=== PATIENT | female | born 1955 | race Caucasian/White ===

== ENCOUNTER 2019-10-12 23:08 | Inpatient (IN) | payer SELFPAY, OTHER ==
[2019-10-12] MEDS ORDERED: propofoL 1,000 MG/100 ML VIAL IV ONE (23:32)
[2019-10-12 23:37] LABS: Blood Gas Oxyhemoglobin 97.2 % (94-97); Blood O2 Saturation 99.9 % (92-98.5)
[2019-10-12 23:47] LABS: Absolute Lymphocytes (CBC) 1.8 K/uL (0.7-4.9); Basophils % 0.8 % (0-1.3); Hematocrit 44.4 % (36.0-45.0); Lymphocytes % 36.5 % (15.3-44.8); RBC Red Blood Cell Count 4.96 M/uL (3.86-4.86)
[2019-10-12 23:52] LABS: Protime INR 0.95
[2019-10-13] MEDS ORDERED: VANCOMYCIN 1 GM/VIAL ONE (00:03)
[2019-10-13] MEDS ORDERED: NA CHLORIDE 0.9% 250 ML ONE (00:03)
[2019-10-13 00:06] LABS: ALT/SGPT 22 U/L (12-78); AST/SGOT 26 U/L (15-37); Albumin 3.6 g/dL (3.4-5.0); Alkaline Phosphatase 97 U/L (45-117); BUN Blood Urea Nitrogen 10 mg/dL (7-18); Bicarbonate 32 mmol/L (21-32); Bilirubin Direct < 0.1 mg/dL (0-0.2); Bilirubin Total 0.2 mg/dL (0.2-1.0); Glucose Level 104 mg/dL (74-106); Protein, Total 7.5 g/dL (6.4-8.2); Sodium Level 141 mmol/L (136-145)
[2019-10-13 00:07] LABS: CKMB Creatine Kinase MB 1.8 ng/mL (0.3-3.6); Troponin (Emerg Dept Use Only) 0.12 ng/mL (0.0-0.045)
[2019-10-13 00:10] LABS: Urine Blood 2+ (NEG); Urine Glucose NEGATIVE (NEG); Urine Protein 3+ (NEG); Urine Specific Gravity 1.025 (1.005-1.030)
[2019-10-13 00:42] LABS: Urine Bacteria >50 /HPF (<20)
[2019-10-13 00:43] LABS: Urine Culture Reflex Order NOT NEEDED; Urine Mucus 1+ /HPF (NONE SEEN)
[2019-10-13] MEDS ORDERED: ACETAMINOPHEN 500 MG TAB PO PRN (01:57)
[2019-10-13] MEDS ORDERED: propofoL 1,000 MG/100 ML VIAL IV PRN (01:57)
[2019-10-13] MEDS ORDERED: ONDANSETRON 4 MG/2 ML VIAL IV PRN (01:57)
[2019-10-13] MEDS: ALBUTEROL 2.5 MG/3 ML NEB SOL NEB SCH ×4 (02:00→19:30)
[2019-10-13] MEDS: IPRATROPIUM BROM 0.5MG/2.5ML NEB SCH ×4 (02:00→19:30)
[2019-10-13] MEDS ORDERED: ASPIRIN 600 MG/SUPP PR ONE (02:16)
--- NOTE | 2019-10-13 02:36 | EDPHYS ---
Physician Documentation [facility] Name: Apple Kan Age: 64 yrs Sex: Female : 1955 Arrival Date: 10/12/2019 Time: 23:26 Bed 3 Private MD: ED Physician Ray Barrow HPI: 10/11 23:32 This 64 yrs old Female presents to ER via Unassigned with complaints of cp respiratory distress. 23:32 The patient or guardian reports cough. Onset: The symptoms/episode began/occurred at an cp unknown time. Unable to obtain HPI due to patient intubated by EMS. Historical: - Allergies: 10/12 00:34 PENICILLINS; rr5 - Home Meds: 00:34 Omeprazole Oral [Active]; Lisinopril Oral [Active]; rr5 - PMHx: 00:34 stroke; brain bleed; Hypertension; rr5 - PSHx: 00:34 Appendectomy; rr5 - Immunization history:: Adult Immunizations unknown. - Social history:: Smoking status: Patient reports the use of cigarette tobacco products, smokes one pack cigarettes per day. Patient uses alcohol, on a daily basis. Patient/guardian denies using street drugs, history taken from [id number]. ROS: 10/11 23:33 Constitutional: Negative for fever. cp Respiratory: Positive for cough. Unable to obtain ROS due to patient is on ventilator. Exam: 23:35 Constitutional: The patient appears non-diaphoretic, well developed, well nourished. cp 23:35 Head/Face: Normocephalic, atraumatic. cp 23:35 Eyes: Periorbital structures: appear normal, Pupils: equal, round, and reactive to light and accomodation, Conjunctiva: normal, no exudate, no injection, Sclera: no appreciated abnormality, Lids and lashes: appear normal, bilaterally. 23:35 ENT: External ear(s): are unremarkable, Nose: is normal. 23:35 Chest/axilla: Inspection: normal. 23:35 Cardiovascular: Rate: normal, Rhythm: regular. 23:35 Respiratory: Breath sounds: are clear throughout, no decreased breath sounds, rhonchi, no wheezing. 23:35 Abdomen/GI: Inspection: abdomen appears normal, Bowel sounds: active, all quadrants. 23:35 Neuro: Orientation: unable to test, the patient is intubated, Mentation: unable to test, the patient is intubated. 10/12 00:25 ECG was reviewed by the Attending Physician. cp Vital Signs: 10/11 11:20 BP 158 / 90; Pulse 72; Resp 16 A; Pulse Ox 100% on 15 lpm ETT ambu; sg 23:20 Temp 96.9; rr5 23:30 Weight 65.77 kg; Height 5 ft. 4 in. (162.56 cm); rr5 10/12 00:00 BP 137 / 87; Pulse 96; Resp 16; Temp 97.5; Pulse Ox 100% on ETT vent; rr5 00:30 BP 167 / 94; Pulse 80; Resp 16; Temp 97.7; Pulse Ox 100% on ETT vent; rr5 01:00 BP 173 / 148; Pulse 95; Resp 16; Temp 97.6; Pulse Ox 100% on ETT vent; rr5 02:00 BP 151 / 75; Pulse 74; Resp 16; Temp 96.9; Pulse Ox 100% on 50% FiO2 ETT vent; rr5 03:00 BP 137 / 80; Pulse 79; Resp 19; Temp 96.8; Pulse Ox 100% on 40% FiO2 ETT vent; rr5 03:25 BP 126 / 53; Pulse 75; Resp 16; Temp 97; Pulse Ox 100% on 40% FiO2 ETT vent; rr5 04:00 BP 110 / 90; Pulse 62; Resp 16; Temp 96; Pulse Ox 100% on 40% FiO2 ETT vent; rr5 10/11 23:30 Body Mass Index 24.89 (65.77 kg, 162.56 cm) rr5 [place] Coma Score: 10/11 23:30 Eye Response: none(1). Verbal Response: none(1). Motor Response: none(1). Modifying rr5 Factors: Intubated. Total: 3. 10/12 00:00 Eye Response: none(1). Verbal Response: none(1). Motor Response: none(1). Modifying rr5 Factors: Intubated. Total: 3. 01:00 Eye Response: none(1). Verbal Response: none(1). Motor Response: none(1). Modifying rr5 Factors: Intubated. Total: 3. 02:00 Eye Response: none(1). Verbal Response: none(1). Motor Response: none(1). Modifying rr5 Factors: Intubated. Total: 3. 03:00 Eye Response: none(1). Verbal Response: none(1). Motor Response: none(1). Modifying rr5 Factors: Intubated. Total: 3. 04:00 Eye Response: none(1). Verbal Response: none(1). Motor Response: none(1). Modifying rr5 Factors: Intubated. Total: 3. Ventilator: 02:00 Fi02: 50%; Rate: 16min; Peep: 5cm; ET tube: 24 mm (Oral); rr5 MDM: 10/11 23:34 Patient medically screened. cp 10/12 00:00 Differential diagnosis: bronchitis, flu, URI, sepsis, pneumonia. cp 01:30 Physician consultation: Deepali Amador MD was called at 01:30, was contacted at 01:30, cp regarding admission, to the ICU, patient's condition. 01:35 Data reviewed: vital signs, nurses notes, lab test result(s), EKG, radiologic studies, cp CT scan, plain films, I have discussed the patient's presentation/case with the attending Emergency Department Physician; and as a result, I will admit patient, administer antibiotics vancomycin, cefepime. 10/11 23:29 Order name: ABG; Complete Time: 23:58 10/11 23:59 Interpretation: Normal except: ABGPCO2 47.4; ABGPO2 465.0; ABGHCO3 29.1; ABGSO2 99.9; cp TWDJ1BF 97.2; ABGCOHB 2.0. 10/11 23:29 Order name: Urine Culture 10/11 23:29 Order name: Basic Metabolic Panel 10/11 23:29 Order name: Blood Culture Adult (2) 10/11 23:29 Order name: CBC with Diff 10/11 23:29 Order name: Ckmb cp 10/11 23:29 Order name: Lactate cp 10/11 23:29 Order name: LFT's 10/11 23:29 Order name: Procalcitonin; Complete Time: 00:32 cp 10/12 00:33 Interpretation: Within normal limits: Procalcitonin < 0.05. cp 10/11 23:29 Order name: Protime (+inr); Complete Time: 23:58 cp 10/11 23:29 Order name: Ptt, Activated; Complete Time: 23:58 cp 10/11 23:29 Order name: Troponin (emerg Dept Use Only); Complete Time: 00:32 cp 10/12 00:32 Interpretation: Abnormal: TROPED 0.12. cp 10/11 23:29 Order name: Urine Microscopic Only; Complete Time: 01:28 cp 10/12 01:31 Interpretation: Reviewed. 10/11 23:29 Order name: Urine Culture EDAL 10/11 23:29 Order name: Basic Metabolic Panel; Complete Time: 00:32 EDAL 10/12 00:32 Interpretation: Normal except: GFR 74. cp 10/11 23:29 Order name: Blood Culture [facility] 10/11 23:29 Order name: CBC with Automated Diff; Complete Time: 23:58 [facility] 10/11 23:59 Interpretation: Normal except: RBC 4.96. 10/11 23:29 Order name: CKMB Creatine Kinase MB; Complete Time: 00:32 EDAL 10/11 23:29 Order name: Lactate; Complete Time: 00:32 EDAL 10/12 00:33 Interpretation: Within normal limits: LAC 1.8. 10/11 23:29 Order name: Liver (Hepatic) Function; Complete Time: 00:32 [facility] 10/11 23:38 Order name: COVID-19 [facility] 10/11 23:47 Order name: Influenza Screen (a \T\ B); Complete Time: 00:32 10/12 00:07 Order name: Urine Dipstick--Ancillary (enter results); Complete Time: 00:32 [facility] 10/12 00:32 Interpretation: Normal except: UBLD 2+; UPROT 3+; UESTR TRACE. cp 10/12 02:11 Order name: ABG Arterial Blood Gas EDAL 10/12 02:11 Order name: CBC with Automated Diff EDAL 10/12 02:11 Order name: Comprehensive Metabolic Panel EDAL 10/12 02:11 Order name: Magnesium EDMS 10/12 02:11 Order name: Phosphorus EDMS 10/12 02:11 Order name: Protime (+INR) EDAL 10/12 02:11 Order name: PTT, Activated Partial Thromb EDMS 10/11 23:29 Order name: Chest Single View XRAY 10/11 23:29 Order name: Accucheck; Complete Time: 00:10 10/11 23:29 Order name: Cardiac monitoring; Complete Time: 00:10 10/11 23:29 Order name: EKG - Nurse/Tech; Complete Time: 00:10 10/11 23:29 Order name: IV Saline Lock - Large Bore; Complete Time: 00:10 10/11 23:29 Order name: Labs collected and sent; Complete Time: 00:10 10/11 23:29 Order name: O2 Per Protocol; Complete Time: 00:10 10/11 23:29 Order name: O2 Sat Monitoring; Complete Time: 00:10 10/11 23:29 Order name: Urine Dipstick-Ancillary (obtain specimen); Complete Time: 00:10 10/11 23:29 Order name: CT Head Brain wo Cont 10/12 01:31 Order name: CT Chest For PE Angio 10/12 02:11 Order name: CONS Physician Consult [facility] 10/12 02:11 Order name: NPO [facility] 10/12 02:11 Order name: Lactate [facility] 10/12 02:11 Order name: Lactate [facility] 10/12 02:11 Order name: Lipid Profile [facility] 10/12 02:11 Order name: Lipid Profile [facility] 10/12 02:11 Order name: NT PRO-BNP [facility] 10/12 02:11 Order name: NT PRO-BNP [facility] 10/12 02:11 Order name: NT PRO-BNP [facility] 10/12 02:12 Order name: T4 Free [facility] 10/12 02:12 Order name: T4 Free [facility] 10/12 02:12 Order name: Thyroid Stimulating Hormone [facility] 10/12 02:12 Order name: Thyroid Stimulating Hormone [facility] 10/12 02:12 Order name: Troponin I [facility] 10/12 02:12 Order name: Troponin I [facility] 10/12 02:12 Order name: Troponin I [facility] EC:25 Rate is 85 beats/min. Rhythm is regular. MI interval is normal. QRS interval is normal. cp QT interval is normal. T waves are Inverted in lead aVL. Interpreted by me. Reviewed by me. Administered Medications: 10/11 23:45 Drug: Propofol 5 mcg/kg/min Route: IV; Rate: calculated rate; Site: right antecubital; rr5 10/12 00:00 Follow up: Rate change 10 mcg/kg/min rr5 00:30 Follow up: Rate change 15 mcg/kg/min rr5 01:00 Follow up: Rate change 20 mcg/kg/min rr5 01:30 Follow up: Rate change 25 mcg/kg/min rr5 01:45 Follow up: Rate change 35 mcg/kg/min rr5 02:00 Follow up: Rate change 40 mcg/kg/min rr5 02:30 Follow up: Rate change 50 mcg/kg/min rr5 03:30 Follow up: Rate change 40 mcg/kg/min rr5 10/11 23:54 Drug: Cefepime 1 grams Route: IVPB; Rate: 200 ml/hr; Infused Over: 30 mins; Site: right jb4 hand; 10/12 00:18 Follow up: Response: No adverse reaction; IV Status: Completed infusion; IV Intake: rr5 100ml 00:20 Dru grams of (vancoMYCIN 1 grams, NS 0.9% 250 ml) Route: IVPB; Infused Over: 2 hrs; rr5 Site: right hand; 02:20 Follow up: Response: No adverse reaction; IV Status: Completed infusion; IV Intake: rr5 250ml 02:00 Drug: NS 0.9% 1000 ml Route: IV; Rate: 100 ml/hr; Site: right forearm; rr5 04:25 Follow up: Response: No adverse reaction; IV Status: Infusion continued upon admission; rr5 IV Intake: 200ml 03:00 Drug: Aspirin Suppository 300 mg Route: MI; rr5 04:00 Follow up: Response: No adverse reaction rr5 Disposition: 03:00 Chart complete. cp 19:09 Co-signature as Attending Physician, Ray Barrow MD. pkmoses Disposition: 10/13/19 02:35 Hospitalization ordered by Deepali Amador for Inpatient Admission. Preliminary diagnosis is Respiratory failure, unspecified. - Bed requested for Intensive Care Unit. - Status is Inpatient Admission. sg - Condition is Critical. - Problem is new. - Symptoms have improved. Signatures: Dispatcher [facility] Rekha Solomon RN RN mw Gay, Steven, RN RN sg Lam, Pin, MD MD pkNaun Hogue PA PA cp Bryson, James, RN RN jb4 Manohar Griffiths RN RN rr5 Corrections: (The following items were deleted from the chart) 03:22 02:35 Hospitalization Ordered by Deepali Amador MD for Inpatient Admission. Preliminary mw diagnosis is Respiratory failure, unspecified. Bed requested for Intensive Care Unit. Status is Inpatient Admission. Condition is Critical. Problem is new. Symptoms have improved. cp 04:50 03:22 10/13/2019 02:35 Hospitalization Ordered by Deepali Amador MD for Inpatient sg Admission. Preliminary diagnosis is Respiratory failure, unspecified. Bed requested for Intensive Care Unit. Status is Inpatient Admission. Condition is Critical. Problem is new. Symptoms have improved. mw
--- NOTE | 2019-10-13 02:36 | ER ---
Nurse's Notes [facility] Name: Apple Kan Age: 64 yrs Sex: Female : 1955 Arrival Date: 10/12/2019 Time: 23:26 Bed 3 Private MD: Diagnosis: Respiratory failure, unspecified Presentation: 10/11 11:20 Chief complaint: EMS states: pt had called EMS for shortness of breath, and cough, upon sg EMS arrival pt had a coughing spell and became apneic for several minutes. 11:20 Acuity: ELEAZAR 1 11:20 Coronavirus screen: Surgical mask placed on patient. Patient moved to private room, sg placed in contact and droplet isolation with eye protection until further assessment. Patient reports a cough. Ebola Screen: Unable to complete the Ebola screening because: Patient is intubated. Initial Sepsis Screen: Does the patient meet any 2 criteria? HR > 90 bpm. No. Patient's initial sepsis screen is negative. Does the patient have a suspected source of infection? Yes: Productive cough/pneumonia. Risk Assessment: Do you want to hurt yourself or someone else? Unable to obtain. Onset of symptoms was October 13, 2019. Care prior to arrival: Oral intubation, Medication(s) given: RSI medications IV initiated. 20 GA, in the left wrist, Oxygen administered. via AMBU bag. 11:20 Method Of Arrival: EMS: [facility] sg 11:20 Note ETT is 7.0 measuring 24 at the teeth per [facility]. Transition of care: patient sg was not received from another setting of care. Historical: - Allergies: 10/12 00:34 PENICILLINS; rr5 - Home Meds: 00:34 Omeprazole Oral [Active]; Lisinopril Oral [Active]; rr5 - PMHx: 00:34 stroke; brain bleed; Hypertension; rr5 - PSHx: 00:34 Appendectomy; rr5 - Immunization history:: Adult Immunizations unknown. - Social history:: Smoking status: Patient reports the use of cigarette tobacco products, smokes one pack cigarettes per day. Patient uses alcohol, on a daily basis. Patient/guardian denies using street drugs, history taken from [id number]. Screenin/25 23:35 Abuse screen: Denies threats or abuse. Denies injuries from another. Nutritional rr5 screening: No deficits noted. Tuberculosis screening: No symptoms or risk factors identified. Fall Risk Ambulatory Aid- None/Bed Rest/Nurse Assist (0 pts). Gait- Impaired (20 pts.). Mental Status- Overestimates/Forgets Limitations (15 pts.). Total Bailey Fall Scale indicates High Risk Score (45 or more points). Fall prevention measures have been instituted. Side Rails Up X 2 Placed Close to Nursing Station Frequent Obs/Assessments Occuring As available patient and family educated on Fall Prevention Program and Strategies. Assessment: 23:20 General: Appears in no apparent distress. Behavior is intubated. came by [facility] rr5 08/31 intubate, complaining of respiratory distress, ET 7.5, 24 cm teeth level connected top MV. with IV cannula G22 at left forearm.. 23:20 Pain: Unable to use pain scale. Patient is intubated. Neuro: Level of Consciousness is rr5 intubated. Oriented to none. Cardiovascular: Capillary refill < 3 seconds Patient's skin is warm and dry. Respiratory: Airway via oral intubation Respiratory effort is even, unlabored, Respiratory pattern is regular, symmetrical, Parent/caregiver reports the patient having shortness of breath cough that is. GI: Abdomen is round non-distended. : No signs and/or symptoms were reported regarding the genitourinary system. EENT: No signs and/or symptoms were reported regarding the EENT system. Derm: Skin is intact, Skin temperature is warm. Musculoskeletal: Capillary refill < 3 seconds. 10/12 00:00 Reassessment: Patient appears in no apparent distress at this time. patient open eyes rr5 and moving her arms and legs, propofol drip increased to 10mcg/kg/min. 00:20 Reassessment: Patient appears in no apparent distress at this time. awaiting for rr5 results. 00:30 Reassessment: spoke to of the patient "ayleen [phone], updated for the plan rr5 of care thru phone. 01:00 Reassessment: Patient appears in no apparent distress at this time. send to CT scan rr5 assisted by RT, CT staff and copier and printer field technician. vitally stable. patient keeps on moving propofol drip increased. 01:15 Reassessment: Patient appears in no apparent distress at this time. back from CT scan. rr5 02:00 Reassessment: warm blanket applied. patient trying to open eyes and moving her rr5 extremities, propofol drip increased. 02:05 Reassessment: Patient appears in no apparent distress at this time. went for CT angio. rr5 [address] staff, RT and copier and printer field technician. vitally stable. 02:25 Reassessment: Patient appears in no apparent distress at this time. came back from CT. rr5 RT decrease FIO2% to 40%. 03:00 Reassessment: Patient appears in no apparent distress at this time. linen and hospital rr5 gown changed. oral suctioning and ET suction done. 03:30 Reassessment: Patient appears in no apparent distress at this time. awaiting for rr5 acceptance in ICU. added warm blanket. propofol drip decreased. 04:00 Reassessment: report given to ICU, GCS 3/15 intubated. with ET size 7.5 24cm teeth rr5 level connected to MV, with NGT F16 at left nostril, with IV cannula G20 at right FA, G20 at right hand and G22 at left FA intact. with Dolan catheter to urine bag draining yellow urine. vital signs taken and recorded. updated for the room number thru phone. Vital Signs: 10/11 11:20 BP 158 / 90; Pulse 72; Resp 16 A; Pulse Ox 100% on 15 lpm ETT ambu; sg 23:20 Temp 96.9; rr5 23:30 Weight 65.77 kg; Height 5 ft. 4 in. (162.56 cm); rr5 10/12 00:00 BP 137 / 87; Pulse 96; Resp 16; Temp 97.5; Pulse Ox 100% on ETT vent; rr5 00:30 BP 167 / 94; Pulse 80; Resp 16; Temp 97.7; Pulse Ox 100% on ETT vent; rr5 01:00 BP 173 / 148; Pulse 95; Resp 16; Temp 97.6; Pulse Ox 100% on ETT vent; rr5 02:00 BP 151 / 75; Pulse 74; Resp 16; Temp 96.9; Pulse Ox 100% on 50% FiO2 ETT vent; rr5 03:00 BP 137 / 80; Pulse 79; Resp 19; Temp 96.8; Pulse Ox 100% on 40% FiO2 ETT vent; rr5 03:25 BP 126 / 53; Pulse 75; Resp 16; Temp 97; Pulse Ox 100% on 40% FiO2 ETT vent; rr5 04:00 BP 110 / 90; Pulse 62; Resp 16; Temp 96; Pulse Ox 100% on 40% FiO2 ETT vent; rr5 10/11 23:30 Body Mass Index 24.89 (65.77 kg, 162.56 cm) rr5 [place] Coma Score: 10/11 23:30 Eye Response: none(1). Verbal Response: none(1). Motor Response: none(1). Modifying rr5 Factors: Intubated. Total: 3. 10/12 00:00 Eye Response: none(1). Verbal Response: none(1). Motor Response: none(1). Modifying rr5 Factors: Intubated. Total: 3. 01:00 Eye Response: none(1). Verbal Response: none(1). Motor Response: none(1). Modifying rr5 Factors: Intubated. Total: 3. 02:00 Eye Response: none(1). Verbal Response: none(1). Motor Response: none(1). Modifying rr5 Factors: Intubated. Total: 3. 03:00 Eye Response: none(1). Verbal Response: none(1). Motor Response: none(1). Modifying rr5 Factors: Intubated. Total: 3. 04:00 Eye Response: none(1). Verbal Response: none(1). Motor Response: none(1). Modifying rr5 Factors: Intubated. Total: 3. ED Course: 10/11 11:40 Urine collected: Dolan catheter specimen, cloudy. Dolan cath inserted, using sterile sg technique, 16 Fr., by nm, balloon inflated, to gravity drainage, urine specimen collected. NGT: inserted 14 Fr. via left nare. verified placement of air over stomach, verified return of gastric contents, to intermittent suction. Patient tolerated well. 23:26 Patient arrived in ED. sg 23:26 Naun Rocha PA is PHCP. cp 23:26 Ray Barrow MD is Attending Physician. cp 23:30 Inserted saline lock: 20 gauge in right antecubital area, using aseptic technique. rr5 Blood collected. Maintain EMS IV. Dressing intact. Site clean \\T\\ dry. Gauge \\T\\ site: G22 left forearm. 23:30 Assist ventilation with ventilator. rr5 23:30 alarm security or surveillance monitor on. Pulse ox on. NIBP on. Warm blanket given. rr5 23:40 Radiology exam delayed due to Patient unable to come to CT for exam at this time. Asked kw1 to wait at least 15 minutes. 23:40 No provider procedures requiring assistance completed. Thermoregulation: warm blanket rr5 given to patient. 23:55 Arm band placed on right wrist. EKG completed in triage. Results shown to MD. rr5 10/12 00:00 Inserted saline lock: 20 gauge in right hand, using aseptic technique. Blood collected. rr5 00:00 Second set of blood cultures drawn by me. rr5 00:08 husbands phone number [phone]. pts son Patrick [phone]. mw2 00:09 Radiology exam delayed due to Patient still unable to come to CT for exam. Waiting for kw1 Respiratory Therapy to come with patient. 00:10 Triage completed. sg 00:14 Chest Single View XRAY In Process Unspecified. EDMS 00:15 Suctioned via ETT - moderate amount thick clear sputum. rr5 00:24 Manohar Griffiths, RN is Primary Nurse. rr5 00:30 Suctioned orally - moderate amount thick red. rr5 01:12 CT Head Brain wo Cont In Process Unspecified. EDMS 01:30 IV discontinued, postive infiltration right AC line,pressure dressing applied. rr5 01:45 Suctioned via ETT - small amount thick white sputum. rr5 02:00 Suctioned orally - moderate amount thick red. rr5 02:34 Deepali Amador MD is Hospitalizing Provider. cp 02:50 Suctioned via ETT - small amount thick white sputum. rr5 03:00 Inserted saline lock: 20 gauge in right forearm, using aseptic technique. rr5 03:25 Patient did not have IV access during this emergency room visit. intact, No rr5 redness/swelling at site. 03:28 Patient has correct armband on for positive identification. Placed in gown. Bed in low rr5 position. Side rails up X2. Administered Medications: 10/11 23:45 Drug: Propofol 5 mcg/kg/min Route: IV; Rate: calculated rate; Site: right antecubital; rr5 10/12 00:00 Follow up: Rate change 10 mcg/kg/min rr5 00:30 Follow up: Rate change 15 mcg/kg/min rr5 01:00 Follow up: Rate change 20 mcg/kg/min rr5 01:30 Follow up: Rate change 25 mcg/kg/min rr5 01:45 Follow up: Rate change 35 mcg/kg/min rr5 02:00 Follow up: Rate change 40 mcg/kg/min rr5 02:30 Follow up: Rate change 50 mcg/kg/min rr5 03:30 Follow up: Rate change 40 mcg/kg/min rr5 10/11 23:54 Drug: Cefepime 1 grams Route: IVPB; Rate: 200 ml/hr; Infused Over: 30 mins; Site: right jb4 hand; 10/12 00:18 Follow up: Response: No adverse reaction; IV Status: Completed infusion; IV Intake: rr5 100ml 00:20 Dru grams of (vancoMYCIN 1 grams, NS 0.9% 250 ml) Route: IVPB; Infused Over: 2 hrs; rr5 Site: right hand; 02:20 Follow up: Response: No adverse reaction; IV Status: Completed infusion; IV Intake: rr5 250ml 02:00 Drug: NS 0.9% 1000 ml Route: IV; Rate: 100 ml/hr; Site: right forearm; rr5 04:25 Follow up: Response: No adverse reaction; IV Status: Infusion continued upon admission; rr5 IV Intake: 200ml 03:00 Drug: Aspirin Suppository 300 mg Route: PA; rr5 04:00 Follow up: Response: No adverse reaction rr5 Intake: 00:18 IV: 100ml; Total: 100ml. rr5 02:20 IV: 250ml; Total: 350ml. rr5 04:25 IV: 200ml; Total: 550ml. rr5 Output: 02:15 Urine: 150ml (Dolan); Total: 150ml. rr5 Ventilator: 02:00 Fi02: 50%; Rate: 16min; Peep: 5cm; ET tube: 24 mm (Oral); rr5 Outcome: 02:35 Decision to Hospitalize by Provider. cp 04:06 Admitted to ICU accompanied by nurse, accompanied by tech, via stretcher, room icu 8, rr5 with oxygen, on monitor, with chart, Report called to alia 04:06 Condition: stable 04:06 Instructed on unable to instruct (intubated patient) 04:50 Patient left the ED. sg Signatures: Dispatcher [employer] EDMS Edilberto Dill, RN RN sg Naun Rocha PA PA cp Bryson, James RN RN jb4 Oumou Sheth kw1 WheelwrightJane daniels 2 Manohar Griffiths RN RN rr5 Corrections: (The following items were deleted from the chart) 07:55 04:00 GCS: 3, rr5 rr5
[2019-10-13] MEDS ORDERED: METHYLPREDNISOLONE 125 MG INJ ONE (04:31)
[2019-10-13] MEDS: NA CHLORIDE 0.9% 1,000 ML IV SCH ×3 (05:19→20:45)
[2019-10-13] MEDS: LORazepam 2 MG/ML VIAL IV PRN ×3 (06:08→23:40)
[2019-10-13 06:32] LABS: Absolute Lymphocytes (CBC) 1.9 K/uL (0.7-4.9); Basophils % 0.7 % (0-1.3); Hematocrit 39.4 % (36.0-45.0); Lymphocytes % 36.7 % (15.3-44.8); MPV 8.9 fL (7.6-11.3); RBC Red Blood Cell Count 4.45 M/uL (3.86-4.86)
[2019-10-13 06:37] LABS: Protime INR 1.06
[2019-10-13] MEDS: FENTANYL CITR 100 MCG/2 ML IV PRN ×3 (06:57→17:46)
--- NOTE | 2019-10-13 07:09 | P.HP ---
Certification for Inpatient Patient admitted to: Inpatient With expected LOS: >2 Midnights Patient will require the following post-hospital care: None Practitioner: I am a practitioner with admitting privileges, knowledge of patient current condition, hospital course, and medical plan of care. Services: Services provided to patient in accordance with Admission requirements found in Title 42 Section 412.3 of the Code of Federal Regulations Patient History Date of Service: 10/13/19 Reason for admission: Acute respiratory failure History of Present Illness: Patient is a 64-year-old female who came to the hospital in respiratory distress. Patient was picked up by EMS and was having persistent coughing. Patient was intubated on the scene and brought to the hospital. In the emergency room patient had chest x-ray which was negative. Patient also had a CT of the chest which revealed ground-glass opacities. Patient had mcgee testing performed. Patient will be admitted to the ICU with mechanical ventilation. Will continue with IV antibiotic therapy. ABGs do not indicate any significant hypercapnia or hypoxemia. We will try a spontaneous breathing trial this morning and we will consult Pulmonary for vent management. Allergies Penicillins Allergy (Verified 10/13/19 03:44) Rash - Past Medical/Surgical History Past Medical History: Unable to obtain Past Surgical History: Unable to obtain - Family History Father Family History: Reviewed- Non-Contributory - Social History Smoking Status: Unknown if ever smoked Alcohol use: No CD- Drugs: No Review of Systems is unable to be obtained Physical Examination - Vital Signs Temperature: 95.5 F Blood Pressure: 132/69 Pulse: 60 Respirations: 19 Pulse Ox (%): 98 - Physical Exam General: Other (Sedated and intubated) HEENT: Atraumatic, PERRLA, Mucous membr. moist/pink, EOMI, Sclerae nonicteric Neck: Supple, 2+ carotid pulse no bruit, No LAD, Without JVD or thyroid abnormality Respiratory: Expiratory wheezes, Rhonchi/gurgles Cardiovascular: Regular rate/rhythm, Normal S1 S2, No murmurs Gastrointestinal: Normal bowel sounds, Soft and benign, Non-distended, No tenderness Musculoskeletal: No clubbing, No swelling, No tenderness Integumentary: No rashes Neurological: Normal tone, Sensation intact, Cranial nerves 3-12 intact, Abnormal gait, Abnormal speech, Abnormal strength Lymphatics: No axilla or inguinal lymphadenopathy - Studies Laboratory Data (last 24 hrs) 10/12/19 23:30: PT 11.2, INR 0.95, APTT 22.2 L 10/12/19 23:30: WBC 4.9, Hgb 14.5, Hct 44.4, Plt Count 226 10/12/19 23:30: Sodium 141, Potassium 4.0, BUN 10, Creatinine 0.79, Glucose 104, Total Bilirubin 0.2, AST 26, ALT 22, Alkaline Phosphatase 97 Microbiology Data (last 24 hrs): 10/12/19 23:56 Nasopharnyx Influenza Type A Antigen Screen - Final 10/12/19 23:56 Nasopharnyx Influenza Type B Antigen Screen - Final Assessment & Plan - Problems (Diagnosis) (1) Acute respiratory failure Current Visit: Yes Status: Acute (2) Suspected COVID-19 virus infection Current Visit: Yes Status: Acute (3) Viral pneumonia Current Visit: Yes Status: Acute (4) UTI (urinary tract infection) Current Visit: Yes Status: Acute Qualifiers: Urinary tract infection type: acute cystitis - Plan 1. Continue with IV antibiotics 2. Awaiting culture 3. Repeat chest x-ray 4. CT of the chest with ground-glass opacity suspicious for viral pneumonia 5. Pulmonary consultation for vent management 6. Continue with nebs as needed 7. Monitor cardiacs 8. Continue with gentle hydration 9. Repeat labs including CBC and renal function in a.m. 10. GI and DVT prophylaxis Discharge Plan: Home Plan to discharge in: Greater than 2 days - Advance Directives Does patient have a Living Will: No Does patient have a Durable POA for Healthcare: No - Code Status/Comfort Care Code Status Assessed: Yes Code Status: Full Code Critical Care: No Time Spent Managing PTS Care (In Minutes): 60
[2019-10-13 07:11] LABS: Arterial Blood Carboxyhemoglob 1.1 % (0-1.5); Blood Gas Oxyhemoglobin 95.2 % (94-97); Blood O2 Saturation 97.3 % (92-98.5)
[2019-10-13] MEDS: CEFTRIAXONE/SWI 1gm 1 GM/10 ML SYR IV SCH (08:09)
[2019-10-13] MEDS: ENOXAPARIN 40 MG/0.4 ML SQ SCH (08:10)
[2019-10-13] MEDS ORDERED: CEFTRIAXONE 1 GM/NS 50 ML 1 GM/50 ML BAG IV SCH (09:00)
[2019-10-13] MEDS ORDERED: AZITHROMYCIN IV 500 MG in NA CHLORIDE 0.9% 250 ML IVPB SCH (09:00)
[2019-10-13 09:04] LABS: ALT/SGPT 16 U/L (12-78); AST/SGOT 22 U/L (15-37); Alkaline Phosphatase 82 U/L (45-117); BUN Blood Urea Nitrogen 10 mg/dL (7-18); Bicarbonate 27 mmol/L (21-32); Bilirubin Total 0.6 mg/dL (0.2-1.0); Glucose Level 112 mg/dL (74-106); Phosphorus 1.1 mg/dL (2.5-4.9); Sodium Level 143 mmol/L (136-145)
[2019-10-13 09:05] LABS: Albumin 3.2 g/dL (3.4-5.0); HDL Cholesterol 78 mg/dL (40-60); LDL Cholesterol, Calculated 89 (<130); Magnesium 1.7 mg/dL (1.8-2.4); NT PRO-BNP 533 pg/mL (<125); Protein, Total 6.4 g/dL (6.4-8.2)
[2019-10-13 09:07] LABS: Potassium 2.8 mmol/L (3.5-5.1)
[2019-10-13] MEDS ORDERED: POTASSIUM PHOS IN 0.9 % NACL 15 MMOL/250 ML BAG IV ONE (09:30)
[2019-10-13] MEDS ORDERED: MAGNESIUM SULFATE 1 gm IVPB 1 GM/100 ML BAG IV ONE (10:00)
[2019-10-13] MEDS: KCL 20 MEQ/100 mL IVPB 20 MEQ/100 ML BAG IV SCH ×2 (10:38→12:59)
--- NOTE | 2019-10-13 10:48 | P.CNS ---
Date of Consult: 10/13/19 Reason for Consult: REsp failure Primary Care Provider: pancho Chief Complaint: Acute respiratory failure History of Present Illness: Patient admitted with respiratory failure intubated call 2 yrs massive stroke lost most of her r side and speechand sight. Lastt night cough lot of mucus. SOB for 2 yrs. Active smoker. [address] Delatorre. No nebs. BP and stomach problems Always had a cough Baseline. Can't walk or talk. Can eat tough Allergies Penicillins Allergy (Verified 10/13/19 03:44) Rash - Past Medical/Surgical History -: cva, brain bleed -: right side deficit -: htn -: 1 ppd smoker -: etoh daily, unknown amount -: appendix - Family History Father Family History: Reviewed- Non-Contributory - Social History Smoking Status: Current every day smoker Alcohol use: No CD- Drugs: No Place of Residence: Home Review of Systems is unable to be obtained Physical Examination Temp Pulse Resp BP Pulse Ox 97 F 70 16 133/66 98 10/13/19 08:00 10/13/19 10:00 10/13/19 10:00 10/13/19 10:00 10/13/19 10:00 General: Alert, Mild distress Respiratory: Expiratory wheezes Cardiovascular: No edema, Regular rate/rhythm Laboratory Data (last 24 hrs) 10/12/19 23:30: PT 11.2, INR 0.95, APTT 22.2 L 10/12/19 23:30: WBC 4.9, Hgb 14.5, Hct 44.4, Plt Count 226 10/12/19 23:30: Sodium 141, Potassium 4.0, BUN 10, Creatinine 0.79, Glucose 104, Total Bilirubin 0.2, AST 26, ALT 22, Alkaline Phosphatase 97 - Problems (1) Acute respiratory failure Current Visit: Yes Status: Acute Plan: PT is 64 yrs of age heavy smoker debilated fro stroke 2 yrs ago. Hxof C cough S/E of lisinopril. NO BD at home. take care of the patient CXRY clear. NE of sepsis Doubt COVID Proacal neg. Normal WBC. Plan to wean off vent. Stop JENNIFER and change ot Norvasc plan to wean off and extubate patient is having apneic at episodes well weaned off the ventilator lower the rate let her CO2 return back to her region levels possible wean and extubate tomorrow morning Qualifiers: Respiratory failure complication: hypoxia Qualified Code(s): J96.01 - Acute respiratory failure with hypoxia
[2019-10-13] MEDS ORDERED: METHYLPREDNISOLONE 125 MG INJ IV SCH (12:00)
--- NOTE | 2019-10-13 12:39 | RAD REPORT ---
EXAM DESCRIPTION: CT - Head Brain Wo Cont - 10/13/2019 6:55 am CLINICAL HISTORY: The patient is 64 years old and is Female; intubated TECHNIQUE: Axial computed tomography images of the head/brain without intravenous contrast. Sagitt al and coronal reformatted images were created and reviewed. This CT exam was performed using one o r more of the following dose reduction techniques: automated exposure control, adjustment of the mA and/or kV according to patient size, and/or use of iterative reconstruction technique. COMPARISON: No relevant prior studies available. FINDINGS: BRAIN: Evidence of prior pontine lacunar infarct is noted. Mild diffuse cerebral atrophy is present. There is patchy hypoattenuation of the deep white matter which is non-specific, but most likely owing to chronic small vessel ischemic change in a patient of this age group. No intracrani al hemorrhage, mass effect, or midline shift is noted. There are no extra-axial fluid collections. VENTRICLES: Unremarkable. No ventriculomegaly. BONES/JOINTS: No acute fracture. SOFT TISSUES: Unremarkable. SINUSES: Unremarkable as visualized. No acute sinusitis. MASTOID AIR CELLS: Unremarkable as visualized. No mastoid effusion. ORBITS: Unremarkable as visualized. IMPRESSION: No acute intracranial findings. Electronically signed by: Penelope Scott MD 10/13/2019 1:15 AM CDT
--- NOTE | 2019-10-13 13:04 | RAD REPORT ---
EXAM DESCRIPTION: CT - Chest For Pe Angio - 10/13/2019 6:54 am CLINICAL HISTORY: Respiratory distress COMPARISON: None Available TECHNIQUE: Multiple helical axial tomographic images were obtained of the chest following administra tion of intravenous contrast per angiographic protocol. Coronal and sagittal reformatted images were obtained. This exam was performed according to our departmental dose-optimization program, which includes autom ated exposure control, adjustment of the mA and/or kV according to patient size and/or use of iterati ve reconstruction technique. FINDINGS: Thyroid gland: unremarkable. Axilla: unremarkable. Pulmonary arteries: Pulmonary arteries appear patent. No evidence of pulmonary embolism. Aorta: Aortic atherosclerosis is present. No evidence of aortic dissection or aneurysm. Mediastinum: An endotracheal tube is present with tip 2.8 cm above the yael. No adenopathy. Heart: Heart is normal in size. Lungs/airways: There is a small amount of patchy groundglass opacity in the right middle lobe and rig ht lower lobe. Mild bronchial wall thickening is present. Mild dependent atelectasis is present. A fe w small calcified granulomas in the right upper lobe are present. There is mild interstitial prominen ce in both lungs. There is suggestion of mild centrilobular emphysematous changes. Pleural spaces: No significant pleural effusion. No pneumothorax. Osseous: Unremarkable. Soft tissues: Unremarkable. Visualized abdomen: Esophogastric tube present with tip in the proximal stomach. IMPRESSION: 1. No evidence of pulmonary embolism. 2. Small amount of groundglass opacity in the right middle and lower lobes which may be related to at electasis versus small infiltrates. 3. Mild infectious/inflammatory bronchial wall thickening. Electronically signed by: Pastor Ferguson MD 10/13/2019 3:47 AM CDT Due to temporary technical issues with the PACS/Fluency reporting system, reports are being signed by the in house radiologist as a courtesy to ensure prompt reporting. The interpreting radiologist is f ully responsible for the content of the report.
--- NOTE | 2019-10-13 13:10 | RAD REPORT ---
EXAM DESCRIPTION: RAD - Chest Single View - 10/13/2019 12:14 am CLINICAL HISTORY: 64 years Female, intubated COMPARISON: None. FINDINGS: Endotracheal tube is present with its tip 3.9 cm above the yael. An esophogastric tube is present w ith tip in the gastric fundus. No consolidation. No pneumothorax. No significant pleural effusion. Heart appears normal in size. Aortic atherosclerosis is present. Osseous structures are unremarkable. IMPRESSION: 1. Endotracheal tube in place as above. 2. No acute findings. Electronically signed by: Pastor Ferguson MD 10/13/2019 12:34 AM CDT Due to temporary technical issues with the PACS/Fluency reporting system, reports are being signed by the in house radiologist as a courtesy to ensure prompt reporting. The interpreting radiologist is f ully responsible for the content of the report.
[2019-10-13 14:52] LABS: Arterial Blood Carboxyhemoglob 0.6 % (0-1.5); Blood Gas Oxyhemoglobin 96.6 % (94-97); Blood O2 Saturation 98.2 % (92-98.5)
--- NOTE | 2019-10-13 15:54 | P.PN ---
Subjective Date of Service: 10/13/19 Primary Care Provider: pancho Chief Complaint: Acute respiratory failure Physical Examination - Vital Signs Temperature: 98.8 F Blood Pressure: 130/69 Pulse: 99 Respirations: 32 Pulse Ox (%): 96 - Studies Laboratory Data (last 24 hrs) 10/12/19 23:30: PT 11.2, INR 0.95, APTT 22.2 L 10/12/19 23:30: WBC 4.9, Hgb 14.5, Hct 44.4, Plt Count 226 10/12/19 23:30: Sodium 141, Potassium 4.0, BUN 10, Creatinine 0.79, Glucose 104, Total Bilirubin 0.2, AST 26, ALT 22, Alkaline Phosphatase 97 Microbiology Data (last 24 hrs): 10/12/19 23:56 Nasopharnyx Influenza Type A Antigen Screen - Final 10/12/19 23:56 Nasopharnyx Influenza Type B Antigen Screen - Final Assessment & Plan Physician Review Additional Text: Nurses spoke to . Advanced directives were readdressed. Patient is do not resuscitate. This was expressed by the . They have informed me. Will change code status. would consider withdrawal of care if her condition continues to decline.
[2019-10-13] MEDS: METHYLPREDNISOLONE 40 MG INJ IV SCH (16:55)
[2019-10-13] MEDS: AMLODIPINE 5 MG TAB PO SCH (16:55)
[2019-10-13] MEDS: propofoL 1,000 MG/100 ML VIAL IV PRN ×2 (18:58→22:11)
[2019-10-13 21:02] LABS: Magnesium 2.1 mg/dL (1.8-2.4); Phosphorus 3.9 mg/dL (2.5-4.9); Potassium 4.2 mmol/L (3.5-5.1)
[2019-10-14] MEDS: METHYLPREDNISOLONE 40 MG INJ IV SCH ×3 (00:53→18:21)
[2019-10-14] MEDS: propofoL 1,000 MG/100 ML VIAL IV PRN (01:57)
[2019-10-14] MEDS: ALBUTEROL 2.5 MG/3 ML NEB SOL NEB SCH ×4 (03:40→20:10)
[2019-10-14] MEDS: IPRATROPIUM BROM 0.5MG/2.5ML NEB SCH ×4 (03:40→20:10)
[2019-10-14 05:49] LABS: BUN Blood Urea Nitrogen 9 mg/dL (7-18); Bicarbonate 26 mmol/L (21-32); Glucose Level 147 mg/dL (74-106); Magnesium 2.2 mg/dL (1.8-2.4); NT PRO-BNP 824 pg/mL (<125); Phosphorus 3.7 mg/dL (2.5-4.9); Potassium 3.9 mmol/L (3.5-5.1); Sodium Level 142 mmol/L (136-145)
[2019-10-14] MEDS: LORazepam 2 MG/ML VIAL IV PRN (06:01)
[2019-10-14 06:16] LABS: Arterial Blood Carboxyhemoglob 0.8 % (0-1.5); Blood Gas Oxyhemoglobin 94.1 % (94-97)
[2019-10-14] MEDS: NA CHLORIDE 0.9% 1,000 ML IV SCH (06:24)
[2019-10-14] MEDS: FENTANYL CITR 100 MCG/2 ML IV PRN (06:26)
[2019-10-14] MEDS ORDERED: POTASSIUM 25 MEQ EFFERV TAB PO ONE (07:00)
[2019-10-14] MEDS: ENOXAPARIN 40 MG/0.4 ML SQ SCH (08:57)
[2019-10-14] MEDS: CEFTRIAXONE/SWI 1gm 1 GM/10 ML SYR IV SCH (08:57)
[2019-10-14] MEDS: AMLODIPINE 5 MG TAB PO SCH (08:57)
--- NOTE | 2019-10-14 09:28 | RAD REPORT ---
EXAM DESCRIPTION: [place] Single View10/14/2019 6:42 am CLINICAL HISTORY: Shortness of breath COMPARISON: October 12 FINDINGS: Mild bilateral lung opacities unchanged. The heart is normal size. Endotracheal tube with its tip well above the yael. Nasogastric tube coiled within the gastric fund us
--- NOTE | 2019-10-14 12:41 | P.PN ---
Subjective Date of Service: 10/14/19 Primary Care Provider: pancho Chief Complaint: Acute respiratory failure Subjective: Improving (Patient is alert very agitated according to her she did no one be resuscitated still has this apneic episodes) Review of Systems is unable to be obtained Physical Examination - Vital Signs Temperature: 97.5 F Blood Pressure: 127/64 Pulse: 69 Respirations: 10 Pulse Ox (%): 96 - Physical Exam General: Alert, Moderate distress Respiratory: Clear to auscultation bilaterally, Diminished Cardiovascular: No edema, Regular rate/rhythm Assessment & Plan - Problems (Diagnosis) (1) Acute respiratory failure Current Visit: Yes Status: Acute Plan: Patient's condition is stable she continues to have apneic episodes on the ventilator discuss with the patient did not want to be poor on a ventilator he does not want chronic ventilation either as currently off sedation will adjust the sensitivity on the ventilator and a planned to leave her on spontaneous breathing trial for 3-4 hr patient has been off propofol since 6:00 a.m. patient has 4+ gram-negative rods in the urine id is pending blood gases satisfactory is mildly hypercapnic I suspect that she has underlying COPD this and has very poor baseline functioning Qualifiers: Respiratory failure complication: hypoxia Qualified Code(s): J96.01 - Acute respiratory failure with hypoxia
--- NOTE | 2019-10-14 13:03 | P.PN ---
Subjective Date of Service: 10/14/19 Primary Care Provider: pancho Chief Complaint: Acute respiratory failure Subjective: No new changes, No C/O voiced (still drowsy - still on vent - propofol turned off this am) Review of Systems is unable to be obtained Physical Examination - Vital Signs Temperature: 97.5 F Blood Pressure: 127/64 Pulse: 69 Respirations: 10 Pulse Ox (%): 96 - Physical Exam General: Other (sedated) HEENT: Atraumatic, Normocephalic Neck: 2+ carotid pulse no bruit, JVD not distended Respiratory: Normal air movement, Crackles/rales Cardiovascular: No edema, Normal pulses, Regular rate/rhythm Gastrointestinal: Normal bowel sounds, Soft and benign Integumentary: No rashes, No breakdown Neurological: Abnormal speech - Studies Laboratory Last Values WBC 4.9 K/uL (4.3-10.9) 10/12/19 23:30 RBC 4.96 M/uL (3.86-4.86) H 10/12/19 23:30 Hgb 14.5 g/dL (12.0-15.0) 10/12/19 23:30 Hct 44.4 % (36.0-45.0) 10/12/19 23:30 MCV 89.5 fL (80-100) 10/12/19 23:30 MCH 29.3 pg (27.0-35.0) 10/12/19 23:30 MCHC 32.7 g/dL (32.0-36.0) 10/12/19 23:30 RDW 15.0 % (12.1-15.2) 10/12/19 23:30 Plt Count 226 K/uL (152-406) 10/12/19 23:30 MPV 9.0 fL (7.6-11.3) 10/12/19 23:30 Neutrophils % 53.7 % (41.7-73.7) 10/12/19 23:30 Lymphocytes % 36.5 % (15.3-44.8) 10/12/19 23:30 Monocytes % 6.5 % (3.3-12.3) 10/12/19 23:30 Eosinophils % 2.5 % (0-4.4) 10/12/19 23:30 Basophils % 0.8 % (0-1.3) 10/12/19: Absolute Neutrophils 2.6 K/uL (1.8-8.0) 10/12/19: Absolute Lymphocytes 1.8 K/uL (0.7-4.9) 10/12/19: Absolute Monocytes 0.3 K/uL (0.1-1.3) 10/12/19: Absolute Eosinophils 0.1 K/uL (0-0.5) 10/12/19: Absolute Basophils 0.0 K/uL (0-0.5) 10/12/19: PT 11.2 SECONDS (9.5-12.5) 10/12/19: INR 0.95 10/12/19: APTT 22.2 SECONDS (24.3-36.9) L 10/12/19 pH 7.41 (7.35-7.45) 10/12/19: pCO2 47.4 mmHG (35-45) H 10/12/19: pO2 465.0 mmHG (75-100) H 10/12/19: HCO3 29.1 mmol/L (22-28) H 10/12/19: Base Excess 4.6 mmol/L 10/12/19: Oxyhemoglobin 97.2 % (94-97) H 10/12/19: ABG O2 Sat (Measured) 99.9 % (92-98.5) H 10/12/19: ABG Carboxyhemoglobin 2.0 % (0-1.5) H 10/12/19: ABG Methemoglobin 0.7 % (0-1.5) 10/12/19: Other Total Hgb 14.4 g/dl (12-18) 10/12/19: Inspired O2 100.0 % 10/12/19: Sodium 141 mmol/L (136-145) 10/12/19: Potassium 4.0 mmol/L (3.5-5.1) 10/12/19: Chloride 102 mmol/L (98-107) 10/12/19: Carbon Dioxide 32 mmol/L (21-32) 10/12/19:30 BUN 10 mg/dL (7-18) 10/12/19 23:30 Creatinine 0.79 mg/dL (0.55-1.3) 10/12/19 23:30 Estimated GFR 74 mL/min (=/>90) L 10/12/19 23:30 Glucose 104 mg/dL (74-106) 10/12/19 23:30 Lactic Acid 1.8 mmol/L (0.4-2.0) 10/12/19 23: Calcium 8.7 mg/dL (8.5-10.1) 10/12/19 23: Total Bilirubin 0.2 mg/dL (0.2-1.0) 10/12/19 23: Direct Bilirubin < 0.1 mg/dL (0-0.2) 10/12/19 23:30 AST 26 U/L (15-37) 10/12/19 23:30 ALT 22 U/L (12-78) 10/12/19 23: Alkaline Phosphatase 97 U/L (45-117) 10/12/19 23:30 CK-MB (CK-2) 1.8 ng/mL (0.3-3.6) 10/12/19 23:30 Rapid Troponin I 0.12 ng/mL (0.0-0.045) H 10/12/19 23:30 Serum Total Protein 7.5 g/dL (6.4-8.2) 10/12/19 23:30 Albumin 3.6 g/dL (3.4-5.0) 10/12/19: Globulin 3.9 g/dL (2.3-3.5) H 10/12/19 23:30 Albumin/Globulin Ratio 0.9 (1.1-1.8) L 10/12/19 23:30 Procalcitonin < 0.05 ng/mL (<0.50) 10/12/19 23: Urine pH 6.0 (5.0-7.0) 10/13/19 00:07 Ur Specific [place] 1.025 (1.005-1.030) 10/13/19 00:07 Glucose (UA)(Auto) Negative (NEG) 10/13/19 00:07 Urine Ketones Negative (NEG) 10/13/19 00:07 Urine Blood 2+ (NEG) H 10/13/19 00:07 Urine Nitrite Negative (NEG) 10/13/19 00:07 Ur Leukocyte Esterase Trace (NEG) H 10/13/19 00:07 Urine RBC 10-20 /HPF (NONE SEEN) H 10/13/19 00:03 Urine WBC 10-20 /HPF (<5) H 10/13/19 00:03 Ur Squamous Epith Cells 10-20 /HPF (NONE SEEN) H 10/13/19 00:03 Urine Bacteria >50 /HPF (<20) H 10/13/19 00:03 Urine Mucus 1+ /HPF (NONE SEEN) 10/13/19 00:03 Urine Culture Reflexed Not needed 10/13/19 00:03 Urine Total Protein 3+ (NEG) H 10/13/19 00:07 Assessment And Plan - Current Problems (Diagnosis) (1) Acute respiratory failure Current Visit: Yes Status: Acute Qualifiers: Respiratory failure complication: hypoxia Qualified Code(s): J96.01 - Acute respiratory failure with hypoxia (2) Suspected COVID-19 virus infection Current Visit: Yes Status: Ruled-out (3) UTI (urinary tract infection) Current Visit: Yes Status: Acute Qualifiers: Urinary tract infection type: acute cystitis (4) Viral pneumonia Current Visit: Yes Status: Acute Physician Review: Patient Assessed, Agree with Above Assessment and Plan Physician Review Additional Text: Impression/plan -Acute on chronic respiratory failure. -Presumed COPD exacerbation -Urinary tract infection with possible sepsis PLAN -CONTINUE VENT MANAGEMENT PER PULMONARY. -unable to extubate today giving poor mental status -poor mental status may be due to recent hold off IV propofol, continue to hold approval for for next 24 hr follow mental state is T non improving a.m. DM with discuss further with family about withdrawal of care vs neurology evaluation -FAMILY DISCUSSED WITH THE SPOUSE CONSIDERING WITHDRAWAL OF CARE -continue to hold off sedation for now -continue antibiotics , Time Spent Managing PTS Care (In Minutes): 35
[2019-10-14] MEDS ORDERED: FUROSEMIDE 40 MG/4 ML VIAL IV ONE (13:22)
[2019-10-14] MEDS: D5 0.45 NS 1,000 ML IV SCH (15:23)
[2019-10-14 16:09] LABS: Blood Gas Oxyhemoglobin 94.7 % (94-97); Blood O2 Saturation 96.6 % (92-98.5)
--- NOTE | 2019-10-14 20:15 | EKG ---
Test Date: 2019-10-13 Test Time: 00:16:08 Classroom Paraprofessional: RR MEASUREMENT RESULTS: Intervals: Rate: 85 OK: 150 QRSD: 82 QT: 386 QTc: 459 [place]: P: 84 OK: 150 QRS: 66 T: 78 INTERPRETIVE STATEMENTS: Normal sinus rhythm Anteroseptal infarct, age undetermined Abnormal ECG Compared to ECG 11/05/2008 08:04:32 Myocardial infarct finding now present Electronically Signed On 10-14-19 20:11:23 CDT by Edward Knapp
[2019-10-15] MEDS: METHYLPREDNISOLONE 40 MG INJ IV SCH ×2 (00:44→08:26)
[2019-10-15] MEDS: IPRATROPIUM BROM 0.5MG/2.5ML NEB SCH ×4 (02:00→20:15)
[2019-10-15] MEDS: ALBUTEROL 2.5 MG/3 ML NEB SOL NEB SCH ×4 (02:00→20:15)
[2019-10-15 04:36] VITALS: BMI 27.1
[2019-10-15 05:49] LABS: ALT/SGPT 18 U/L (12-78); AST/SGOT 19 U/L (15-37); Albumin 3.2 g/dL (3.4-5.0); Alkaline Phosphatase 76 U/L (45-117); BUN Blood Urea Nitrogen 10 mg/dL (7-18); Bicarbonate 31 mmol/L (21-32); Bilirubin Total 0.3 mg/dL (0.2-1.0); Glucose Level 141 mg/dL (74-106); Magnesium 2.1 mg/dL (1.8-2.4); Potassium 3.8 mmol/L (3.5-5.1); Protein, Total 7.1 g/dL (6.4-8.2); Sodium Level 142 mmol/L (136-145)
[2019-10-15 06:54] LABS: Absolute Lymphocytes (CBC) 0.5 K/uL (0.7-4.9); Basophils % 0.4 % (0-1.3); Hematocrit 41.5 % (36.0-45.0); Lymphocytes % 5.3 % (15.3-44.8); MPV 9.2 fL (7.6-11.3); RBC Red Blood Cell Count 4.59 M/uL (3.86-4.86)
[2019-10-15] MEDS ORDERED: KCL 20 MEQ/100 mL IVPB 20 MEQ/100 ML BAG IV SCH (08:00)
[2019-10-15] MEDS: ENOXAPARIN 40 MG/0.4 ML SQ SCH (08:25)
[2019-10-15] MEDS: CEFTRIAXONE/SWI 1gm 1 GM/10 ML SYR IV SCH (08:25)
[2019-10-15] MEDS: AMLODIPINE 5 MG TAB PO SCH ×2 (08:26→21:23)
--- NOTE | 2019-10-15 08:29 | ECHO ---
HEIGHT: 5 ft 4 in WEIGHT: 157 lb 12.8 oz DATE OF STUDY: 10/14/[address]: Kirill Winston MD 2-DIMENSIONAL: YES M.MODE: YES DOPPLER: YES COLOR FLOW: YES TDS: PORTABLE: YES DEFINITY: BUBBLE STUDY: DIAGNOSIS: RESPIRATORY FAILURE CARDIAC HISTORY: CATHERIZATION: NO SURGERY: NO PROSTHETIC VALVE: NO PACEMAKER: NO MEASUREMENTS (cm) DIASTOLIC (NORMALS) SYSTOLIC (NORMALS) IVSd 1.0 (0.6-1.2) LA Diam 2.8 (1.9-4.0) LVEF 65% LVIDd 3.4 (3.5-5.7) LVIDs 2.2 (2.0-3.5) %FS 35% LVPWd 1.2 (0.6-1.2) Ao Diam 2.4 (2.0-3.7) 2 DIMENSIONAL ASSESSMENT: RIGHT ATRIUM: NORMAL LEFT ATRIUM: NORMAL RIGHT VENTRICLE: NORMAL LEFT VENTRICLE: NORMAL TRICUSPID VALVE: NORMAL MITRAL VALVE: NORMAL PULMONIC VALVE: NORMAL AORTIC VALVE: NORMAL PERICARDIAL EFFUSION: NONE AORTIC ROOT: NORMAL LEFT VENTRICULAR WALL MOTION: NORMAL DOPPLER/COLOR FLOW: NORMAL COMMENTS: NORMAL 2-DIMENSIONAL ECHOCARDIOGRAM WITH DOPPLER. NO WALL MOTION ABNORMALITY. NO EFFUSION. TECHNOLOGIST: MICHELLE MCCAIN
[2019-10-15 09:30] LABS: Platelet Estimate ADEQ; Urine White Blood Cell Casts OK
[2019-10-15 09:31] LABS: Blood Morphology Comment NOT SEEN (NOT SEEN)
[2019-10-15] MEDS: D5 0.45 NS 1,000 ML IV SCH (10:00)
--- NOTE | 2019-10-15 11:03 | P.PN ---
Subjective Date of Service: 10/15/19 Primary Care Provider: pancho Chief Complaint: Acute respiratory failure Subjective: No new changes, No C/O voiced, Improving (- s/p self extubated yesterday - still NGT insitu -tolerating NC 02 well - able to vocalize some , will like to go home) Physical Examination - Vital Signs Temperature: 97.3 F Blood Pressure: 147/74 Pulse: 62 Respirations: 17 Pulse Ox (%): 99 - Physical Exam General: Alert, Oriented x3, Cooperative, Other HEENT: Atraumatic, Normocephalic, PERRLA (NGT insitu ) Neck: Supple, 2+ carotid pulse no bruit, JVD not distended Respiratory: Diminished, Crackles/rales Cardiovascular: Regular rate/rhythm, Normal S1 S2 Gastrointestinal: Normal bowel sounds, Soft and benign, Non-distended Musculoskeletal: No clubbing, No swelling Neurological: Other (moderate dysarthria, slight left facial droop), Abnormal speech, Abnormal strength - Studies Microbiology Data (last 24 hrs): 10/13/19 00:03 Catheterized Urine [place] Count - Final >100,000 CFU/ML. 10/13/19 00:03 Catheterized Urine - Final Escherichia Coli 10/12/19 23:35 Nasopharnyx Coronavirus COVID-19 PCR - Final Assessment And Plan - Current Problems (Diagnosis) (1) Acute respiratory failure Current Visit: Yes Status: Acute Qualifiers: Respiratory failure complication: hypoxia Qualified Code(s): J96.01 - Acute respiratory failure with hypoxia (2) Suspected COVID-19 virus infection Current Visit: Yes Status: Ruled-out (3) UTI (urinary tract infection) Current Visit: Yes Status: Acute Qualifiers: Urinary tract infection type: acute cystitis (4) Viral pneumonia Current Visit: Yes Status: Acute Physician Review: Patient Assessed, Agree with Above Assessment and Plan Physician Review Additional Text: Impression/plan -Acute on chronic respiratory failure. -Presumed COPD exacerbation -E coli UTI with possible sepsis -Bilateral Lower lobe Pneumonia -Presumed Dsyphagia - hx of CVA with left hemioparesis PLAN -continue antibiotics -tolerating nasal cannula O2, will continue to wean as tolerated. -recent chest x-ray shows unchanged basilar infiltrate, continue antibiotics regimen for now -will consult speech and swallow for further evaluation given suspected dysphagia with possible aspiration pneumonia -continue to hold all sedation -start p.o. feeding if cleared by speech and Swallow otherwise may need told to NG tube feeding and consider possibility of PEG tube placement -we transfer from ICU to floor today -continue DVT prophylaxis -consult PT and OT for some evaluation although patient admit to lack of insurance , wanting to go home as is providing total care for her
--- NOTE | 2019-10-15 11:52 | P.PN ---
Subjective Date of Service: 10/16/19 Primary Care Provider: pancho Chief Complaint: COPD Subjective: Improving (Fishing using groin she is extubated yesterday wants to goal discussed with the has problems swallowing) Review of Systems General: Weakness Respiratory: Cough Physical Examination - Vital Signs Temperature: 97.3 F Blood Pressure: 147/74 Pulse: 62 Respirations: 17 Pulse Ox (%): 99 - Physical Exam General: Alert, Cooperative Respiratory: Clear to auscultation bilaterally, Diminished Cardiovascular: No edema - Studies Microbiology Data (last 24 hrs): 10/13/19 00:03 Catheterized Urine [place] Count - Final >100,000 CFU/ML. 10/13/19 00:03 Catheterized Urine - Final Escherichia Coli 10/12/19 23:35 Nasopharnyx Coronavirus COVID-19 PCR - Final Assessment & Plan - Problems (Diagnosis) (1) COPD (chronic obstructive pulmonary disease) Current Visit: Yes Status: Acute Plan: Patient has presumed COPD she is inactive small pleural admitted acute on chronic cough presumed side effect off Abdulaziz inhibitors changed to Norvasc there is no evidence of sepsis no history of fever or chills white count is normal he may benefit from a bronchodilator at home Dc steroids patient has E coli in the urine does pansensitive CT angiogram no evidence of pulmonary embolism mild ground-glass changes patient is scheduled to have a swallow study done he has some dysphagia from her stroke as per Physician Review: Patient Assessed, Agree with Above Assessment and Plan
[2019-10-15] MEDS: D5W 1,000 ML IV SCH (13:17)
--- NOTE | 2019-10-15 13:36 | RAD REPORT ---
EXAM DESCRIPTION: RAD - Barium Swallow Modified - 10/15/2019 1:24 pm CLINICAL HISTORY: CVA/dysphagia/respiratory complications FINDINGS: LARYNGEAL PENETRATION: NECTAR AND HONEY, NOT CLEARED POSSIBLE TRACE ASPIRATION WITH TSP OF THIN, NO COUGH. ASPIRATION OF PUREED. MODERATE TO SIGNIFICANT PHARYNGEAL RESIDUE - VALLECULAR AND PYRIFORM. MILD INCEASED ORAL TRANSIT WITH PUREED AND MILD ORAL RESIDUE. MINIMAL TO MILD DELAY IN SWALLOW ONSET. THERE IS REDUCED TONGUE BASE RETRACTION, REDUCED HYOLARYNGEAL PROTRACTION/ ELEVATION AND REDUCED CONT RACTION OF THE POSTERIOR PHARYNGEAL WALL. POSSIBLE TRACE ASPIRATION OCCURRED WITH THIN VIA TSP AND ASPIRATION ALSO WITH PUREED. PENETRATIONS WITH NECTAR AND HONEY WERE DEEP, UNCLEARED LIKELY TO BE ASPIRATED BY WAY OF GRAVITY. MODERATE TO SIGNIFICANT RESIDUE WAS PRESENT IN THE VALLECULAE, PYRIFORMS, AND THE POSTERIOR PHARYNGEA L WALL. STUDY WAS CONCLUDED DUE TO COUGHING AND CHOKING. ENDURANCE IS LIMITED. Fluoroscopy time 2.1 minutes. Seventeen fluoroscopic spot images obtained
[2019-10-15] MEDS: AMANTADINE 100 MG CAP FT SCH (16:18)
[2019-10-15] MEDS: MORPHINE 2 MG/ML SYR IV PRN (18:40)
[2019-10-16] MEDS ORDERED: HYDRALAZINE HCL 20 MG/ML VIAL IV PRN (01:29)
[2019-10-16] MEDS: IPRATROPIUM BROM 0.5MG/2.5ML NEB SCH ×4 (02:20→19:35)
[2019-10-16] MEDS: ALBUTEROL 2.5 MG/3 ML NEB SOL NEB SCH ×4 (02:20→19:35)
[2019-10-16 04:30] LABS: Absolute Lymphocytes (CBC) 1.1 K/uL (0.7-4.9); Basophils % 0.4 % (0-1.3); Hematocrit 40.1 % (36.0-45.0); Lymphocytes % 12.8 % (15.3-44.8); MPV 9.1 fL (7.6-11.3); RBC Red Blood Cell Count 4.46 M/uL (3.86-4.86)
[2019-10-16 04:53] LABS: ALT/SGPT 18 U/L (12-78); AST/SGOT 18 U/L (15-37); Albumin 3.1 g/dL (3.4-5.0); Alkaline Phosphatase 68 U/L (45-117); BUN Blood Urea Nitrogen 11 mg/dL (7-18); Bicarbonate 37 mmol/L (21-32); Bilirubin Total 0.3 mg/dL (0.2-1.0); Glucose Level 103 mg/dL (74-106); Magnesium 2.4 mg/dL (1.8-2.4); Potassium 3.6 mmol/L (3.5-5.1); Protein, Total 6.7 g/dL (6.4-8.2); Sodium Level 141 mmol/L (136-145)
[2019-10-16] MEDS ORDERED: KCL 20 MEQ/100 mL IVPB 20 MEQ/100 ML BAG IV SCH (05:07)
[2019-10-16] MEDS: D5W 1,000 ML IV SCH ×2 (05:58→14:37)
[2019-10-16] MEDS: AMLODIPINE 5 MG TAB PO SCH ×2 (10:15→21:00)
[2019-10-16] MEDS: AMANTADINE 100 MG CAP FT SCH (10:15)
[2019-10-16] MEDS: ENOXAPARIN 40 MG/0.4 ML SQ SCH (10:38)
[2019-10-16] MEDS: CEFTRIAXONE/SWI 1gm 1 GM/10 ML SYR IV SCH (10:38)
--- NOTE | 2019-10-16 12:43 | P.PN ---
Subjective Date of Service: 10/16/19 Primary Care Provider: pancho Chief Complaint: COPD Subjective: No new changes, No C/O voiced (Status post face swallowing eval yesterday -patient today feels she felt because of a NG tube, would like NG tube removed. Risk of recurrent aspiration causing bilateral aspiration pneumonia. Her patient recurrent shortness of breath discuss with a S she expressed understanding. She is agreeable and will like a PEG tube if she feels repeat swallowing eval after NG tube removed. -shortness of the remained controlled, requiring only 2 L nasal cannula O2 now) Physical Examination - Vital Signs Temperature: 97.3 F Blood Pressure: 147/74 Pulse: 62 Respirations: 17 Pulse Ox (%): 99 - Physical Exam General: Alert, In no apparent distress, Other (rhymythical drowsiness with flickering eyes but conversant) Neck: 2+ carotid pulse no bruit, JVD not distended Respiratory: Crackles/rales, Rhonchi/gurgles Cardiovascular: Normal pulses, Regular rate/rhythm, Normal S1 S2 Gastrointestinal: Normal bowel sounds, Soft and benign, Non-distended Neurological: Abnormal speech (but intact flow , left hemiparesis) - Studies Microbiology Data (last 24 hrs): 10/13/19 00:03 Catheterized Urine [place] Count - Final >100,000 CFU/ML. 10/13/19 00:03 Catheterized Urine - Final Escherichia Coli Assessment And Plan - Current Problems (Diagnosis) (1) Acute respiratory failure Current Visit: Yes Status: Resolved Qualifiers: Respiratory failure complication: hypoxia Qualified Code(s): J96.01 - Acute respiratory failure with hypoxia (2) Suspected COVID-19 virus infection Current Visit: Yes Status: Ruled-out (3) UTI (urinary tract infection) Current Visit: Yes Status: Acute Qualifiers: Urinary tract infection type: acute cystitis (4) Viral pneumonia Current Visit: Yes Status: Acute Physician Review: Patient Assessed, Agree with Above Assessment and Plan Physician Review Additional Text: Impression/plan -Acute on chronic respiratory failure. -Presumed COPD exacerbation -E coli UTI with possible sepsis -Bilateral Lower lobe Pneumonia -Dsyphagia -hx of CVA with left hemiparesis PLAN -will remove NG tube now as patient request -will obtain repeat swallowing eval -if patient fails, we discussed with spouse and proceed with PEG tube placement -we also discussed option of hospice if patient fails swallowing evaluation -continue antibiotics -tolerating nasal cannula O2, will continue to wean as tolerated. -continue NPO status for now. -continue D5W -continue DVT prophylaxis -consult PT and OT for some evaluation although patient admit to lack of insurance , wanting to go home as is providing total care for her Time Spent Managing PTS Care (In Minutes): 35
[2019-10-16] MEDS: MORPHINE 2 MG/ML SYR IV PRN (21:42)
[2019-10-17] MEDS: ALBUTEROL 2.5 MG/3 ML NEB SOL NEB SCH ×4 (01:20→19:50)
[2019-10-17] MEDS: IPRATROPIUM BROM 0.5MG/2.5ML NEB SCH ×4 (01:20→19:50)
[2019-10-17] MEDS: D5W 1,000 ML IV SCH ×3 (02:06→17:28)
[2019-10-17 05:15] LABS: Absolute Lymphocytes (CBC) 1.7 K/uL (0.7-4.9); Basophils % 0.5 % (0-1.3); Hematocrit 40.4 % (36.0-45.0); Lymphocytes % 35.6 % (15.3-44.8); MPV 8.8 fL (7.6-11.3); RBC Red Blood Cell Count 4.51 M/uL (3.86-4.86)
[2019-10-17 05:31] LABS: ALT/SGPT 18 U/L (12-78); AST/SGOT 15 U/L (15-37); Albumin 2.9 g/dL (3.4-5.0); Alkaline Phosphatase 66 U/L (45-117); BUN Blood Urea Nitrogen 9 mg/dL (7-18); Bicarbonate 38 mmol/L (21-32); Bilirubin Total 0.4 mg/dL (0.2-1.0); Glucose Level 88 mg/dL (74-106); Potassium 3.7 mmol/L (3.5-5.1); Protein, Total 6.3 g/dL (6.4-8.2); Sodium Level 139 mmol/L (136-145)
[2019-10-17] MEDS ORDERED: KCL 20 MEQ/100 mL IVPB 20 MEQ/100 ML BAG IV SCH (06:00)
[2019-10-17] MEDS: ENOXAPARIN 40 MG/0.4 ML SQ SCH (09:00)
[2019-10-17] MEDS: CEFTRIAXONE/SWI 1gm 1 GM/10 ML SYR IV SCH (10:24)
--- NOTE | 2019-10-17 11:02 | P.PN ---
Subjective Date of Service: 10/17/19 Primary Care Provider: pancho Chief Complaint: COPD Subjective: No new changes, Improving (Scheduled for repeat modified barium swallow today. Patient admit to be informed to to team talked during procedure to help her swallowing -she is in good spirits. -denies any trouble breathing now, still on 4 L nasal cannula O2) Physical Examination - Vital Signs Temperature: 97.5 F Blood Pressure: 158/70 Pulse: 69 Respirations: 22 Pulse Ox (%): 99 - Physical Exam General: Alert, Oriented x3 HEENT: Atraumatic, Normocephalic Neck: 2+ carotid pulse no bruit, JVD not distended Respiratory: Diminished, Crackles/rales Cardiovascular: Normal pulses, Regular rate/rhythm, Normal S1 S2 Gastrointestinal: Normal bowel sounds, Soft and benign, Non-distended Neurological: Abnormal speech (Slowed, mild dysarthria, left hemiplegia) - Studies Lab reviewed Assessment And Plan - Current Problems (Diagnosis) (1) Acute respiratory failure Current Visit: Yes Status: Resolved Qualifiers: Respiratory failure complication: hypoxia Qualified Code(s): J96.01 - Acute respiratory failure with hypoxia (2) Suspected COVID-19 virus infection Current Visit: Yes Status: Ruled-out (3) UTI (urinary tract infection) Current Visit: Yes Status: Acute Qualifiers: Urinary tract infection type: acute cystitis (4) Viral pneumonia Current Visit: Yes Status: Acute Physician Review: Patient Assessed, Agree with Above Assessment and Plan Physician Review Additional Text: Impression/plan -Acute on chronic respiratory failure. -Presumed COPD exacerbation -E coli UTI with possible sepsis -Bilateral Lower lobe Pneumonia -Dsyphagia -hx of CVA with left hemiparesis PLAN -follow a modified barium swallow today, if improving and able to transition to p.o. intake, will start modified diet -we tried to wean down nasal cannula O2 today, reduced flow to 2 L morning toe pulse oximetry -continue current antibiotic regimen. -case management discuss with, unable to get home O2 for patient since noninsured. -will keep patient inpatient until to wean down O2 -however I if unable to tolerate all start p.o. feeding today, we discussed with patient about possibility of hospice versus proceeding with PEG tube placement -continue D5W -continue DVT prophylaxis -consult PT and OT for some evaluation although patient admit to lack of insurance , wanting to go home as is providing total care for her
--- NOTE | 2019-10-17 11:02 | RAD REPORT ---
EXAM DESCRIPTION: RAD - Barium Swallow Modified - 10/17/2019 10:37 am CLINICAL HISTORY: CVA/respiratory complications FINDINGS: LARYNGEAL PENETRATION, NOT CLEARED WITH THIN, NECTAR, AND HONEY THICK LIQUID IN NEUTRAL PO SITION. PENETRATION WITH PUREED IN NEUTRAL POSITION, CLEARED. THERE IS REDUCED ORAL BOLUS MANIPULATION WITH MECHANICAL SOFT AND SOLID. MILD INCREASE IN ORAL TRANSIT TIME WITH BOLUS. THERE WAS MILD DELAY IN SWALLOW ONSET. THERE IS REDUCED BASE OF TONGUE RETRACTION, REDUCED EPIGLOTTIC INVERSION, REDUCED LARYNGEAL ELEVATION AND REDUCED CONTRACTION OF THE PHARYNGEAL WALL. THERE WERE DEEP PENETRATIONS WITH THIN, NECTAR, AND HONEY, THAT DID NO FULLY CLEAR. THERE WAS NO PENETRATION OR ASPIRATION OF THIN, NECTAR, AND HONEY WITH THE USE OF A SUPRAGLOTTIC SWAL LOW AND ALSO WITH A CHIN TUCK MANEUVER. NO PENETRATION OR ASPIRATION WAS PRESENT WITH MECHANICAL SOFT OR SOLID. MILD - MODERATE RESIDUAL IN THE VALLECULAR AND PYRIFORMS CLEARED WITH A RESWALLOW. FINAL PUREED BOLUS PASS INTO THE LOWER ESOPHAGUS WITHOUT INCIDENT. Fluoroscopy time 10 minutes. Thirty-seven fluoroscopic spot images obtained
[2019-10-17] MEDS: AMANTADINE 100 MG CAP FT SCH (13:58)
[2019-10-17] MEDS: AMLODIPINE 5 MG TAB PO SCH ×2 (13:58→20:57)
[2019-10-17] MEDS: CEFUROXIME 250 MG TAB PO SCH (20:57)
[2019-10-18] MEDS: IPRATROPIUM BROM 0.5MG/2.5ML NEB SCH ×4 (01:20→19:25)
[2019-10-18] MEDS: ALBUTEROL 2.5 MG/3 ML NEB SOL NEB SCH ×2 (01:20→08:53)
[2019-10-18] MEDS: D5W 1,000 ML IV SCH (04:46)
[2019-10-18 05:55] LABS: ALT/SGPT 29 U/L (12-78); AST/SGOT 26 U/L (15-37); Albumin 2.9 g/dL (3.4-5.0); Alkaline Phosphatase 71 U/L (45-117); BUN Blood Urea Nitrogen 8 mg/dL (7-18); Bicarbonate 37 mmol/L (21-32); Bilirubin Total 0.5 mg/dL (0.2-1.0); Glucose Level 101 mg/dL (74-106); Potassium 3.7 mmol/L (3.5-5.1); Protein, Total 6.2 g/dL (6.4-8.2); Sodium Level 139 mmol/L (136-145)
[2019-10-18] MEDS ORDERED: KCL 20 MEQ/100 mL IVPB 20 MEQ/100 ML BAG IV SCH (08:00)
[2019-10-18] MEDS: AMLODIPINE 5 MG TAB PO SCH ×2 (08:02→22:03)
[2019-10-18] MEDS: CEFUROXIME 250 MG TAB PO SCH ×2 (08:07→22:03)
[2019-10-18] MEDS: ENOXAPARIN 40 MG/0.4 ML SQ SCH (08:08)
[2019-10-18] MEDS: AMANTADINE 100 MG CAP FT SCH (08:18)
[2019-10-18 09:17] LABS: Blood Gas Oxyhemoglobin 86.3 % (94-97); Blood O2 Saturation 88.3 % (92-98.5)
[2019-10-18] MEDS ORDERED: ALBUTEROL 2.5 MG/3 ML NEB SOL NEB PRN (11:12)
--- NOTE | 2019-10-18 11:14 | P.PN ---
Subjective Date of Service: 10/19/19 (Hospitalist) Primary Care Provider: pancho Chief Complaint: COPD Subjective: Improving (Patient is doing well communicating has some expressive dysphagia from a stroke low oxygen level) Review of Systems General: Weakness Respiratory: Shortness of Breath Physical Examination - Vital Signs Temperature: 97.3 F Blood Pressure: 139/67 Pulse: 82 Respirations: 18 Pulse Ox (%): 97 - Physical Exam General: Alert, Oriented x3 Respiratory: Clear to auscultation bilaterally Cardiovascular: No edema, Regular rate/rhythm - Studies Microbiology Data (last 24 hrs): 10/13/19 00:01 Blood - Blood Aerobic Blood Culture - Final No growth in 5 days. 10/13/19 00:01 Blood - Blood Anaerobic Blood Culture - Final No growth in 5 days. 10/12/19 23:30 Blood - Blood Aerobic Blood Culture - Final No growth in 5 days. 10/12/19 23:30 Blood - Blood Anaerobic Blood Culture - Final No growth in 5 days. Assessment & Plan - Problems (Diagnosis) (1) COPD (chronic obstructive pulmonary disease) Current Visit: Yes Status: Acute Plan: Patient admitted with a cough secondary to an JENNIFER-inhibitor and COPD oxygen level is low vital signs are stable will add Brovana and prednisone possible discharge tomorrow if her oxygen level is satisfactory patient was mildly hypoxic I suspect with the use of steroids her oxygen level showed improved possible discharge tomorrow Qualifiers: Emphysema type: unspecified Physician Review: Patient Assessed, Agree with Above Assessment and Plan Physician Review Additional Text: Impression/plan -Acute on chronic respiratory failure. -Presumed COPD exacerbation -E coli UTI with possible sepsis -Bilateral Lower lobe Pneumonia -Dsyphagia -hx of CVA with left hemiparesis PLAN -follow a modified barium swallow today, if improving and able to transition to p.o. intake, will start modified diet -we tried to wean down nasal cannula O2 today, reduced flow to 2 L morning toe pulse oximetry -continue current antibiotic regimen. -case management discuss with, unable to get home O2 for patient since noninsured. -will keep patient inpatient until to wean down O2 -however I if unable to tolerate all start p.o. feeding today, we discussed with patient about possibility of hospice versus proceeding with PEG tube placement -continue D5W -continue DVT prophylaxis -consult PT and OT for some evaluation although patient admit to lack of insurance , wanting to go home as is providing total care for her
[2019-10-18] MEDS: predniSONE 20 MG TAB PO SCH ×2 (12:31→22:03)
[2019-10-18] MEDS: ENSURE PUDDING 4 OZ CUP PO SCH ×2 (12:32→22:04)
[2019-10-18] MEDS: ARFORMOTEROL TARTRATE 15 MCG/2 ML VIAL.NEB NEB SCH (19:25)
[2019-10-19] MEDS: ARFORMOTEROL TARTRATE 15 MCG/2 ML VIAL.NEB NEB SCH (07:45)
[2019-10-19] MEDS: IPRATROPIUM BROM 0.5MG/2.5ML NEB SCH ×2 (07:45)
--- NOTE | 2019-10-19 08:48 | P.DS ---
Admission Date: 10/13/19 (Hospitalist) Discharge Date: 10/19/19 Primary Care Provider: pancho Disposition: ROUTINE DISCHARGE Discharge Condition: FAIR Reason for Admission: COPD - Problems (1) COPD (chronic obstructive pulmonary disease) Current Visit: Yes Status: Acute Qualifiers: Emphysema type: unspecified Brief History of Present Illness: Patient admitted with respiratory failure intubated call 2 yrs massive stroke lost most of her r side and speechand sight. Lastt night cough lot of mucus. SOB for 2 yrs. Active smoker. [address] Delatorre. No nebs. BP and stomach problems Always had a cough Baseline. Can't walk or talk. Can eat tough Hospital Course: Patient is 64 years of age admitted with respiratory distress she presumed Marc have a COPD patient continually smokes history of stroke chronic cough I suspect was from JENNIFER-inhibitor patient did well id coli in the urine seen by speech therapy heating a regular diet no evidence of thromboembolism questionable pneumonia she remained persistently hypoxic pretty easy oxygen for her patient does not have any insurance At the time of discharge patient alert oriented cooperative denies any shortness of breath or cough blood pressure well controlled he prefers to use a bronchodilator. She continues to remain hypoxic on examination chest diminished air entry cardiovascular system os sounds normal abdomen soft vital signs stable Vital Signs/Physical Exam: Temp Pulse Resp BP Pulse Ox 97.8 F 64 17 131/70 98 10/19/19 04:00 10/19/19 04:00 10/19/19 04:00 10/19/19 04:00 10/19/19 04:00 Laboratory Data at Discharge: WBC 4.8 K/uL (4.3-10.9) D 10/17/19 05:05 Hgb 13.2 g/dL (12.0-15.0) 10/17/19 05:05 Hct 40.4 % (36.0-45.0) 10/17/19 05:05 Plt Count 205 K/uL (152-406) 10/17/19 05:05 PT 12.5 SECONDS (9.5-12.5) 10/13/19 06:10 INR 1.06 10/13/19 06:10 APTT 28.6 SECONDS (24.3-36.9) 10/13/19 06:10 Sodium 139 mmol/L (136-145) 10/18/19 05:13 Potassium 3.7 mmol/L (3.5-5.1) 10/18/19 05:13 BUN 8 mg/dL (7-18) 10/18/19 05:13 Creatinine 0.40 mg/dL (0.55-1.3) L 10/18/19 05:13 Glucose 101 mg/dL (74-106) 10/18/19 05:13 Phosphorus 3.7 mg/dL (2.5-4.9) 10/14/19 04:39 Magnesium 2.4 mg/dL (1.8-2.4) 10/16/19 04:19 Total Bilirubin 0.5 mg/dL (0.2-1.0) 10/18/19 05:13 AST 26 U/L (15-37) 10/18/19 05:13 ALT 29 U/L (12-78) 10/18/19 05:13 Alkaline Phosphatase 71 U/L (45-117) 10/18/19 05:13 Troponin I 0.31 ng/mL (0.0-0.045) H 10/13/19 14:15 Triglycerides 193 mg/dL (<150) H 10/13/19 08:02 Cholesterol 206 mg/dL (<200) H 10/13/19 08:02 HDL Cholesterol 78 mg/dL (40-60) H 10/13/19 08:02 Cholesterol/HDL Ratio 2.64 10/13/19 08:02 Home Medications: Omeprazole 20 mg PO DAILY 10/13/19 Amlodipine [Norvasc*] 5 mg PO DAILY 30 Days #30 tab 10/15/19 Umeclidinium Brm/Vilanterol Tr [Anoro Ellipta 62.5-25 Mcg INH] 1 each IH DAILY 30 Days #30 blst.w.dev 10/15/19 New Medications: Umeclidinium Brm/Vilanterol Tr [Anoro Ellipta 62.5-25 Mcg INH] 1 each IH DAILY 30 Days #30 blst.w.dev Amlodipine [Norvasc*] 5 mg PO DAILY 30 Days #30 tab Patient Discharge Instructions: Patient discharged home purchase the oxygen patient to stop lisinopril. Patient to arrange for a telephone was at my office next week inform the patient that blood pressure medication was changed and fax to the pharmacy Diet: Regular
[2019-10-19 08:49] VITALS: BP 139/67; TEMP 97.3
[2019-10-19] MEDS: ENSURE PUDDING 4 OZ CUP PO SCH (09:00)
[2019-10-19] MEDS: predniSONE 20 MG TAB PO SCH (09:15)
[2019-10-19] MEDS: AMLODIPINE 5 MG TAB PO SCH (09:15)
[2019-10-19] MEDS: ENOXAPARIN 40 MG/0.4 ML SQ SCH (09:16)
[2019-10-19] MEDS: AMANTADINE 100 MG CAP FT SCH (09:16)
[2019-10-19] MEDS: CEFUROXIME 250 MG TAB PO SCH (09:16)
[2019-10-19 10:52] VITALS: O2SAT 90
== END 2019-10-19 11:41 | disposition home or self-care (01) | DRG 208 ==
LOC: ER 23:08 → ERHOLD 10-13 02:28 → 3RD-ICU 10-13 04:14 → 2ND 10-15 17:26
PROVIDERS: ADMIT Hospitalist; ATTEND Internal Medicine Sleep Medicine
PROC: 5A1945Z Respiratory Ventilation, 24-96 Consecutive Hours (ICD-10-PCS; principal; 2019-10-13)
DX: J96.21 Acute and chronic respiratory failure with hypoxia (principal); J12.9 Viral pneumonia, unspecified; N30.00 Acute cystitis without hematuria; I69.354 Hemiplegia and hemiparesis following cerebral infarction affecting left non-dominant side; Z66 Do not resuscitate; Z20.828 Contact with and (suspected) exposure to other viral communicable diseases; Z88.0 Allergy status to penicillin; Z79.899 Other long term (current) drug therapy; Z90.49 Acquired absence of other specified parts of digestive tract; F17.210 Nicotine dependence, cigarettes, uncomplicated; B96.20 Unspecified Escherichia coli [E. coli] as the cause of diseases classified elsewhere; J43.9 Emphysema, unspecified
CPT/HCPCS: 36415; 51702; 70450; 71045; 71275; 74230; 80048; 80053; 80061; 80076; 81003; 81015; 82553; 82805; 83605; 83735; 83880; 84100; 84132; 84145; 84439; 84443; 84484; 85025; 85610; 85730; 87040; 87077; 87086; 87088; 87186; 87804; 92526; 92611; 93005; 93306; 94002; 94003; 96361; 96365; 96367; 96375; 97112; 97161; 97530; 99291; 99292; J0456; J0696; J1650; J1940; J2270; J2704; J2920; J2930; J3010; J3475; J7030; J7512; J7605; J7799; Q9967; U0002

== ENCOUNTER 2022-10-12 17:22 | Emergency (ER) | payer OTHER ==
--- OUTSIDE RECORDS SUMMARY | 2022-10-12 17:33 | XMS REPORT | Continuity of Care Document ---
:1955 Author Organization [facility] t Address [address]. [address] [place] [address] Care Team Providers Name Role Phone Unavailable Unavailable Unavailable Problems This patient has no known problems. Allergies, Adverse Reactions, Alerts This patient has no known allergies or adverse reactions. Social History Social Habit Start Date Stop Date Quantity Comments Source Sex Ass[birth year] At [birth year] SOREN Mckinley 00:00:00 00:00:00 [facility] Medications This patient has no known medications. Procedures This patient has no known procedures. Results Test Description Test Time Test Comments Results Result Comments Source SARS-COV2/RT-PCR ([facility]) 2019-10-13 11:53:00 Test Item Value Reference Range Interpretation Comme nts SARS-COV2/RT-PCR (test code = [id number]) Not Detected Not Detected, N egative SARS-COV-2 PERFORMING LAB (test code = [facility] [id number]) Negative results do not preclude SARS-CoV-2 infection and should not be used as the sole basis for patient management decisions. Negative results must be combined with clinical observations, patient history, and epidemiological information. A false negative result may occur if a specimen is improperly collected, transported or handled.The limit of detection for this assay is 250 copies/mL.This SARS CoV-2 test is a rapid, real-time RT-PCR test intended for the qualitative detection of nucleic acid from SARS-CoV-2 in a nasopharyngeal swab specimen collected from individuals suspected of COVID-19 by their healthcare provider.This test has not been Food and Drug Administration (FDA) cleared or approved and has been authorized by FDA under an Emergency Use Authorization (EUA). This EUA will be effective until the declaration that circumstances exist justifying the authorization of the emergency use of in vitro diagnostic tests for detection and/or diagnosis of COVID-19 is terminated under Section 564(b)(2) of the Act or the EUA is revoked under Section 564(g) of the Act.Fact Sheet for Healthcare Pro viders:https://www.[employer]/Documents/Xpert%20Xpress%20SARS%20CoV-2/Fact%20Sh eets/3023802%76VYCD-EUD-1%20HEALTHCARE%20PROVIDERS%20FACT%20SHEET.pdfFact Sheet for Healthcare Patients:https://www.[employer]/Documents/Xpert%20Xpress%20SARS%20CoV-2/Fact%20Sheets/3023801%20SARS-COV -2%20PATIENT%20FACT%20SHEET.pdfPerforming Laboratory:[facility] [place] [address]
[2022-10-12 18:19] LABS: Arterial Blood Carboxyhemoglob 0.6 % (0-1.5); Blood Gas Oxyhemoglobin 92.3 % (94-97); Blood O2 Saturation 94.5 % (92-98.5)
[2022-10-12 18:28] LABS: Protime INR 1.1
[2022-10-12 18:30] LABS: Absolute Lymphocytes (CBC) 0.8 K/uL (0.7-4.9); Hematocrit 39.3 % (36.0-45.0); Lymphocytes % 7.9 % (15.3-44.8); MCV 84.2 fL (80-100); MPV 7.6 fL (7.6-11.3); RBC Red Blood Cell Count 4.67 M/uL (3.86-4.86)
[2022-10-12] MEDS ORDERED: LEVALBUTEROL 1.25 MG/3 ML NEB ONE (18:42)
[2022-10-12] MEDS ORDERED: METHYLPREDNISOLONE 125 MG INJ ONE (18:42)
[2022-10-12] MEDS ORDERED: IPRATROPIUM BROM 0.5MG/2.5ML ONE (18:42)
[2022-10-12 18:46] LABS: Potassium 3.2 mEq/L (3.5-5.1)
[2022-10-12 18:54] LABS: Troponin High Sensitivity 68.4 pg/mL (<58.9)
--- NOTE | 2022-10-12 19:04 | RAD REPORT ---
EXAM DESCRIPTION: [place] Single View10/12/2022 6:33 pm CLINICAL HISTORY: Dyspnea;COPD COMPARISON: <Comparisons> TECHNIQUE: Portable AP view of the chest. FINDINGS: Extracorporeal metallic wires and battery packs overlying the right hemithorax limit evalu ation. Patient rotation also limits evaluation. The visualized aspects of the lungs are clear. No pne umothorax or effusion. The cardiomediastinal contours are unremarkable. IMPRESSION: No acute cardiopulmonary process allowing for limitations mentioned above.
[2022-10-12] MEDS ORDERED: NA CHLORIDE 0.9% 1,000 ML ONE (19:25)
--- NOTE | 2022-10-12 20:15 | EDPHYS ---
Physician Documentation [facility] Name: Apple Kan Age: 67 yrs Sex: Female : 1955 Arrival Date: 10/12/2022 Time: 17:22 Bed 4 Private MD: ED Physician Naun Teixeira HPI: 10/12 18:18 This 67 yrs old Female presents to ER via EMS with complaints of shortness of breath. kb 19:42 The patient has shortness of breath at rest. Onset: The symptoms/episode began/occurred kb at 15:00. Duration: The symptoms are continuous. The patient's shortness of breath is aggravated by nothing, is alleviated by nothing. Associated signs and symptoms: Pertinent positives: vomiting, diarrhea. Severity of symptoms: At their worst the symptoms were moderate severe in the emergency department the symptoms are unchanged. The patient has experienced similar episodes in the past. The patient has not recently seen a physician. EMS reports pt started having shortness of breath at 1500 and it has continuously gotten worse. Reports pt vomited prior to shortness of breath starting. Pt had episode of diarrhea in route. O2 sat 65% on room air upon EMS arrival, 80s on neb treatment in route and 90% on nonrebreather. Historical: - Allergies: 17:48 PENICILLINS; ss - PMHx: 17:48 Brain bleed; Hypertension; stroke; ss - Immunization history:: Adult Immunizations unknown. - Social history:: Smoking status: Patient denies any tobacco usage or history of. ROS: 19:40 Constitutional: Negative for fever, chills, and weight loss. kb 19:40 Respiratory: Positive for shortness of breath. 19:40 Abdomen/GI: Positive for vomiting, diarrhea, Negative for abdominal pain. 19:40 All other systems are negative. Exam: 18:18 ECG was reviewed by the Attending Physician. kb 19:36 Head/Face: Normocephalic, atraumatic. ENT: Moist Mucous membranes Cardiovascular: kb Regular rate and rhythm with a normal S1 and S2. No gallops, murmurs, or rubs. No pulse deficits. Abdomen/GI: Soft, non-tender. No distention Skin: Warm, dry with normal turgor. Normal color. MS/ Extremity: Pulses equal, no cyanosis. Neurovascular intact. Full, normal range of motion. 19:36 Constitutional: The patient appears alert, awake. 19:36 Respiratory: moderate respiratory distress is noted, Respirations: labored breathing, Breath sounds: wheezing: expiratory that is mild, that is moderate, is scattered. 19:36 Neuro: Exam negative for acute changes. Vital Signs: 17:20 BP 132 / 69; Pulse 115; Resp 20; Temp 98.3(O); Pulse Ox 94% on Non-rebreather mask; db Weight 56.7 kg; 18:00 BP 115 / 67; Pulse 106; Resp 22; Pulse Ox 98% on CPAP; db 19:00 BP 109 / 70; Pulse 117; Resp 18; Pulse Ox 97% on BiPAP; ld1 22:00 BP 100 / 64; Pulse 84; Resp 18; Pulse Ox 99% on CPAP; aa9 MDM: 17:25 Patient medically screened. kb 19:41 Differential diagnosis: Bronchitis Chronic Obstructive Pulmonary Disease pneumonia, kb aspiration. Data reviewed: vital signs, nurses notes. Consideration of Admission/Observation Pt will be transferred for COPD exacerbation and hypoxia. Historians other than the Patient: EMS: [facility]. 19:43 Counseling: I had a detailed discussion with the patient and/or guardian regarding: the kb historical points, exam findings, and any diagnostic results supporting the discharge/admit diagnosis, lab results, radiology results, the need to transfer to another facility, [facility] does not immediately have the required specialist. 19:44 ED course: Pt doing well on Bipap. Reports she is breathing easier. O2 sat 97-100%. kb 20:16 Antibiotic administration: Levaquin given. Immunization status: Pneumococcal vaccine: jean within last 5 years. Influenza vaccine: within last 5 years. Independent interpretation of the following test(s) in the Emergency Department EKG: See my EKG interpretation above. 10/12 17: Order name: Basic Metabolic Panel; Complete Time: 18:54 kb 10/12 17:26 Order name: CBC with Diff; Complete Time: 18:39 kb 10/12 17: Order name: Magnesium; Complete Time: 18:54 kb 10/12 17:26 Order name: NT PRO-BNP; Complete Time: 18:54 kb 10/12 17:26 Order name: PT-INR; Complete Time: 18:29 kb 10/12 17: Order name: Troponin HS; Complete Time: 18:54 kb 10/12 17:26 Order name: ABG; Complete Time: 18:29 kb 10/12 18:16 Order name: Stool Culture kb 10/12 18:16 Order name: C.difficile kb 10/12 19:17 Order name: Flu; Complete Time: 20:44 kb 10/12 19:17 Order name: SARS-COV-2 RT PCR; Complete Time: 20:44 kb 10/12 19:43 Order name: Lactate w/ 2H reflex if indic. kb 10/12 19:43 Order name: Blood Culture Adult (2) kb 10/12 17:26 Order name: XRAY Chest (1 view); Complete Time: 19:07 kb 10/12 17:26 Order name: BIPAP kb 10/12 17:26 Order name: EKG; Complete Time: 17:27 kb 10/12 17:26 Order name: Cardiac monitoring; Complete Time: 17:59 kb 10/12 17:26 Order name: EKG - Nurse/Tech; Complete Time: 17:59 kb 10/12 17:26 Order name: IV Saline Lock; Complete Time: 18:27 kb 10/12 17:26 Order name: Labs collected and sent; Complete Time: 18:27 kb 10/12 17:26 Order name: O2 Per Protocol; Complete Time: 17:59 kb 10/12 17:26 Order name: O2 Sat Monitoring; Complete Time: 17:59 kb EC:18 Rate is 111 beats/min. Rhythm is regular. QRS [place] is Normal. MA interval is normal at kb 158 msec. QRS interval is normal at 74 msec. QT interval is normal at 443 msec. Administered Medications: 18:35 Drug: MethylPrednisoLONE IVP 125 mg Route: IVP; Site: left antecubital; db 18:35 Drug: Levalbuterol Inhalation 1.25 mg Route: Inhalation; db 18:35 Drug: Ipratropium Inhalation Aerosol 0.5 mg Route: Inhalation; db 19:47 Drug: NS 0.9% IV 1000 ml Route: IV; Rate: 100 ml/hr; Site: left antecubital; aa9 23:02 Follow up: Response: No adverse reaction; IV Status: Infusion continued upon transfer aa9 21:42 Drug: levofloxacin IVPB 500 mg Volume: 100 ml; Route: IVPB; Infused Over: 60 mins; aa9 Site: left wrist; 23:01 Follow up: Response: No adverse reaction; IV Status: Completed infusion; IV Intake: aa9 100ml 21:57 Drug: NS 0.9% with KCl IV 20 mEq/L 1000 ml Route: IV; Rate: 100 ml/hr; Site: left aa9 antecubital; 23:01 Follow up: IV Status: Infusion continued upon transfer aa9 Disposition: 18:24 Co-signature as Attending Physician, Ahsan Rebolledo MD I agree with the assessment and rn plan of care. I reviewed the patient's care provided by Advanced Practice Provider \T\ agree w/ the diagnosis \T\ care plan. I personally saw the pt \T\ performed a substantive portion of the visit, incldng all aspects of the (History/Exam/Medical Decision Making). PA/PNEUMATIC PRESS HAND's history reviewed, patient interviewed, and examined. HPI: 67 year old female with reported COPD and previous stroke presents with vomiting, diarrhea, sob, and possible aspiration. EMS reports O2 sat 65%. My personal exam of patient reveals: + moderate tachypnea with soiled clothes I agree with assessment and care plan and confirm the diagnosis (es) above. Disposition Summary: 10/12/22 20:14 Transfer Ordered Transfer Location: [facility] jean Reason: Higher level of care jean Condition: Stable jean Problem: new jean Symptoms: have improved jean Accepting Physician: to [facility], imu(10/12/22 23:25) aa9 Diagnosis - COPD/ Chronic obstructive pulmonary disease with (acute) exacerbation jean - Hypoxemia jean - Vomiting jean - Hypokalemia jean Forms: - Medication Reconciliation Form jean - SBAR form jean Signatures: Dispatcher [employer] EDMS Sarahi Berg, KILEY-C SENIOR UNDERWRITING ASSISTANT-Naun Gonsales MD MD cha Nieto, Roman, MD MD rn Smirch, Shelby, RN RN Alis Lockwood RN RN aa9 Cristiane Funes RN RN db Corrections: (The following items were deleted from the chart) 19:44 19:42 EMS reports pt started having shortness of breath at 1500 and it has continuously kb gotten worse. Reports pt vomited prior to shortness of breath starting. kb 19:45 19:42 EMS reports pt started having shortness of breath at 1500 and it has continuously kb gotten worse. Reports pt vomited prior to shortness of breath starting. Pt had episode of diarrhea in route. kb 20:14 20:14 to [facility], yesi pena cha 23:25 20:14 to [facility], [facility] aa9
--- NOTE | 2022-10-12 20:15 | ER ---
Nurse's Notes [facility] Name: Apple Kan Age: 67 yrs Sex: Female : 1955 Arrival Date: 10/12/2022 Time: 17:22 Bed 4 Private MD: Diagnosis: COPD/ Chronic obstructive pulmonary disease with (acute) exacerbation;Hypoxemia;Vomiting;Hypokalemia Presentation: 10/12 17:20 Chief complaint: EMS states: patient with SOB from [facility]. Call for SOB, db vomiting and possible aspiration. Patient with 65% RA. EMS gave Albuterol treatment x 1 . Patient covered in diarrhea upon EMS arrival and patient arrived to this ER covered in diarrhea with diarrhea dripping off of the EMS stretcher. . Patient states last changed at 1500 today. Coronavirus screen: Client denies travel out of the [place] in the last 14 days. At this time, the client does not indicate any symptoms associated with coronavirus-19. Ebola Screen: Patient negative for fever greater than or equal to 101.5 degrees Fahrenheit, and additional compatible Ebola Virus Disease symptoms Patient denies exposure to infectious person. Patient denies travel to an Ebola-affected area in the 21 days before illness onset. No symptoms or risks identified at this time. Initial Sepsis Screen: Does the patient meet any 2 criteria? RR > 20 per min. HR > 90 bpm. Yes. Initial Sepsis Screen: Does the patient have a suspected source of infection? No. Patient's initial sepsis screen is negative. Risk Assessment: Do you want to hurt yourself or someone else? Patient reports no desire to harm self or others. Onset of symptoms was October 12, 2022. 17:20 Method Of Arrival: EMS: [facility] db 17:20 Acuity: ELEAZAR 2 db Triage Assessment: 18:04 General: Appears distressed, uncomfortable, covered in diarrhea. Behavior is db cooperative. Pain: Complains of pain in abdomen. Historical: - Allergies: 17:48 PENICILLINS; ss - PMHx: 17:48 Brain bleed; Hypertension; stroke; ss - Immunization history:: Adult Immunizations unknown. - Social history:: Smoking status: Patient denies any tobacco usage or history of. Screenin:29 [facility] ED Fall Risk Assessment (Adult) History of falling in the last 3 months, db including since admission No falls in past 3 months (0 pts) Confusion or Disorientation No (0 pts) Intoxicated or Sedated No (0 pts) Impaired Gait No (0 pts) Mobility Assist Device Used No (0 pt) Altered Elimination No (0 pt) Score/Fall Risk Level 0 - 2 = Low Risk Oriented to surroundings. Abuse screen: Denies threats or abuse. Denies injuries from another. Nutritional screening: No deficits noted. Tuberculosis screening: No symptoms or risk factors identified. Assessment: 17:40 Reassessment: RT at bedside upon arrival from EMS - RT placed pt on BIPAP. ld1 18:29 Reassessment: Patient and/or family updated on plan of care and expected duration. Pain db level reassessed. Neuro: Level of Consciousness is awake, alert, obeys commands, Oriented to person, place, time. Respiratory: Reports shortness of breath at rest Airway is patent Respiratory effort is even, labored, Respiratory pattern is regular, symmetrical, Patient placed CPAP: Breath sounds are diminished. 21:09 Reassessment: attempted to call report. aa9 22:00 Reassessment: Patient appears in no apparent distress at this time. Patient and/or aa9 family updated on plan of care and expected duration. Pain level reassessed. 22:12 Reassessment: Patient appears in no apparent distress at this time. report provided to aa9 Kamilla NICOLAS. 23:02 Reassessment: Patient appears in no apparent distress at this time. Patient and/or aa9 family updated on plan of care and expected duration. Pain level reassessed. EMS at bedside. 23:25 Reassessment: Patient appears in no apparent distress at this time. Patient and/or aa9 family updated on plan of care and expected duration. Pain level reassessed. EMS transferred patient via ambulance. Vital Signs: 17:20 BP 132 / 69; Pulse 115; Resp 20; Temp 98.3(O); Pulse Ox 94% on Non-rebreather mask; db Weight 56.7 kg; 18:00 BP 115 / 67; Pulse 106; Resp 22; Pulse Ox 98% on CPAP; db 19:00 BP 109 / 70; Pulse 117; Resp 18; Pulse Ox 97% on BiPAP; ld1 22:00 BP 100 / 64; Pulse 84; Resp 18; Pulse Ox 99% on CPAP; aa9 Vitals: 18:00 Cardiac Rhythm Assessment Regular Sinus rhythm. db ED Course: 17:25 Patient arrived in ED. kb 17:25 Sarahi Berg FNP-C is [facility]. kb 17:25 Ahsan Rebolledo MD is Attending Physician. kb 17:56 Cristiane Funes, MARIA ISABEL is Primary Nurse. db 17:57 Repositioned patient. Bath given. Cleaned of incontinence. Linen changed. Received ld1 patient from [facility] - soiled head to toe in feces. Diarrhea covering entire body. Perineal area - visible redness and sores. Applied barrier cream to perineal area and placed clean brief after cleaning patient. 18:02 Triage completed. db 18:15 Inserted saline lock: 20 gauge in left antecubital area, using aseptic technique. Blood db collected. 18:29 Patient has correct armband on for positive identification. Placed in gown. Bed in low db position. Call light in reach. Side rails up X2. Client placed on continuous cardiac and pulse oximetry monitoring. NIBP monitoring applied. Warm blanket given. 18:35 XRAY Chest (1 view) In Process Unspecified. EDMS 18:50 Arm band placed on Patient placed in an exam room. db 19:47 SARS-COV-2 RT PCR Sent. aa9 19:47 Flu Sent. aa9 20:05 Attending Physician role handed off by Ahsan Rebolledo MD [facility] 20:05 Naun Teixeira MD is Attending Physician. jean 20:29 Inserted saline lock: 22 gauge in left wrist, using aseptic technique. Blood collected. aa9 Administered Medications: 18:35 Drug: MethylPrednisoLONE IVP 125 mg Route: IVP; Site: left antecubital; db 18:35 Drug: Levalbuterol Inhalation 1.25 mg Route: Inhalation; db 18:35 Drug: Ipratropium Inhalation Aerosol 0.5 mg Route: Inhalation; db 19:47 Drug: NS 0.9% IV 1000 ml Route: IV; Rate: 100 ml/hr; Site: left antecubital; aa9 23:02 Follow up: Response: No adverse reaction; IV Status: Infusion continued upon transfer aa9 21:42 Drug: levofloxacin IVPB 500 mg Volume: 100 ml; Route: IVPB; Infused Over: 60 mins; aa9 Site: left wrist; 23:01 Follow up: Response: No adverse reaction; IV Status: Completed infusion; IV Intake: aa9 100ml 21:57 Drug: NS 0.9% with KCl IV 20 mEq/L 1000 ml Route: IV; Rate: 100 ml/hr; Site: left aa9 antecubital; 23:01 Follow up: IV Status: Infusion continued upon transfer aa9 Intake: 23:01 IV: 100ml; Total: 100ml. aa9 Outcome: 20:14 ER care complete, transfer ordered by MD. pena 23:25 Patient left the ED. aa9 Signatures: Dispatcher [employer] EDMS Sarahi Berg, TYPING SECRETARY-C TYPING SECRETARY-Naun Gonsales MD MD cha Smirch, Shelby RN MARIA ISABEL ss Nieves Draper RN RN ld1 Alis Lockwood RN RN aa9 Cristiane Funes RN RN db
[2022-10-12] MEDS ORDERED: Levofloxacin500mg IV 500 MG/100 ML BAG IV ONE (21:42)
[2022-10-12] MEDS ORDERED: NS KCL 20MEQ 1,000 ML IV ONE (21:59)
[2022-10-13 00:28] VITALS: BP 100/64; O2SAT 99
[2022-10-13 02:37] LABS: C.diff Antigen/Toxin Ag neg : Tox neg (NEG : NEG)
--- NOTE | 2022-10-14 07:04 | EKG ---
Test Date: 2022-10-12 Test Time: 17:39:23 Stuffing Machine Operator: ELSA MEASUREMENT RESULTS: Intervals: Rate: 111 ME: 158 QRSD: 74 QT: 326 QTc: 443 Winston: P: 76 ME: 158 QRS: -17 T: 81 INTERPRETIVE STATEMENTS: Sinus tachycardia with premature atrial complexes Septal infarct, age undetermined Abnormal ECG Compared to ECG 10/13/2019 00:16:08 Atrial premature complex(es) now present Sinus rhythm no longer present Myocardial infarct finding still present Electronically Signed On 10-14-22 07:00:22 CDT by Edward Knapp
== END 2022-10-12 23:25 | disposition short-term general hospital (02) ==
LOC: ER 17:22
DX: J44.1 Chronic obstructive pulmonary disease with (acute) exacerbation (principal); R09.02 Hypoxemia; E87.6 Hypokalemia; R11.10 Vomiting, unspecified; I10 Essential (primary) hypertension; Z88.0 Allergy status to penicillin; Z20.822 Contact with and (suspected) exposure to COVID-19
CPT/HCPCS: 96365; 96361; 93005; 87040 ×2; 87045; 85025; 80048; 36415; 83735; 85610; 87046; 83605; 87324; 84484; 83880; 87804 ×2; 71045; 82805; 94660; 96375; 99285; U0003; J7614; J7644; J2930; J7030; J3480

== ENCOUNTER 2023-01-01 11:01 | Emergency (ER) | payer OTHER ==
--- OUTSIDE RECORDS SUMMARY | 2023-01-01 11:05 | XMS REPORT | Continuity of Care Document ---
:1955 Author Organization [facility] t Address [address] [place] [address] Care Team Providers Name Role Phone LAKESHIA GUZMAN Attending Clinician Unavailable STAN BLAND Attending Clinician Unavailable JOHN CHOW Attending Clinician Unavailable LAKESHIA GUZMAN Admitting Clinician Unavailable Payers Payer Name Policy Type Policy Number Effective Date Expiration Date S neelima MEDICARE A B [id number] 2020 00:00:00 MEDICAID [employer] [id number] 2022 00:00:00 Problems This patient has no known problems. Allergies, Adverse Reactions, Alerts Allergy Allergy Status Severity Reaction(s) Onset Inactive Treating Comm ents Source Name Type Date Date Clinician PENICILL Allergy Active SOREN Naik 10-13 [facility] 00:[facility]: [facility] Social History Social Habit Start Date Stop Date Quantity Comments Source Sex Ass[birth year] At [birth year] SOREN Iyer Nicole kes 00:00:00 00:00:00 [facility] Medications This patient has no known medications. Vital Signs Vital Name Observation Time Observation Value Comments Source HEIGHT 2022-10-13 04:00:00 157.5 cm WEIGHT 2022-10-13 02:00:00 57.7 kg HEIGHT 2022-10-13 04:00:00 157.5 cm WEIGHT 2022-10-13 02:00:00 57.7 kg Procedures This patient has no known procedures. Encounters Start End Encounter Admission Attending Care Care Encounter Source Date/Time Date/Time Type Type Clinicians Facility Department ID 2022-10-13 2022-10-18 Inpatient ER STAN BLAND [facility] Med [id number] [facility] 00:26:00 14:51:00 2022-10-13 2022-10-13 Outpatient GERALDODEBBIE Collazo DEBBIE [id number] Debbie 00:00:00 00:00:00 JOHN pollock Results Test Description Test Time Test Comments Results Result Comments Source SPUTUM CULTURE + GRAM STAIN 2022-10-20 10:31:02 Test Item Value Reference Range Interpretation Comme nts CULTURE (BEAKER) (test code = METHICILLIN RESISTANT A <1+ Methicillin resistant 1095) STAPHYLOCOCCUS AUREUS Staphy lococcus aureus Clindamycin (test code = 10) R Erythromycin (test code = 4) R Linezolid (test code = 40) S Nitrofurantoin (test code = S 23) Oxacillin (test code = 14) R Rifampin (test code = 43) S Tetracycline (test code = 2) S Trimethoprim + S Sulfamethoxazole (test code = 47) Vancomycin (test code = 13) S GRAM STAIN RESULT (BEAKER) 1+ WBCs (test code = 1123) GRAM STAIN RESULT (BEAKER) 15-20 epithelial cells (test code = 202092) GRAM STAIN RESULT (BEAKER) <1+ gram positive rods (test code = 340883) GRAM STAIN RESULT (BEAKER) <1+ gram negative (test code = 010977) coccobacilli GRAM STAIN RESULT (BEAKER) <1+ gram positive cocci in (test code = 837125) clusters GRAM STAIN RESULT (BEAKER) 1+ budding yeast (test code = 741667) 1+ Normal respiratory naomy presentPOCT-GLUCOSE [id number] 12:22:04 Test Item Value Reference Range Interpretation Comments POC-GLUCOSE METER 93 mg/dL 70-110 : TESTED A T [facility] 6720 (BEAKER) (test code [facility], = 1538) [address]: Paper Machine Supervisor/Techni ria ID = [id number] for [employer]Shead (contract), Gabbie thia POCT-GLUCOSE [id number] 08:57:30 Test Item Value Reference Range Interpretation Comments POC-GLUCOSE METER 100 mg/dL 70-110 : TESTED A T [facility] 6720 (BEAKER) (test code [facility], = 1538) [address]: Paper Machine Supervisor/Techni ria ID = [id number] for Storey-Shead (con tract), Jess [id number] 08:55:06 Test Item Value Reference Range Interpretation Comments FERRITIN (BEAKER) (test code = 181.90 ng/mL 5.00-275.00 361) RAD, SHOULDER, COMPLETE (MIN 2 VIEWS), [id number] 06:53:00Reason for exam:->painCH[facility] : 1955 Sex: FFINALREPORT RAD, SHOULDER, COMPLETE (MIN 2 VIEWS), RIGHT INDICATION: pain COMPARISON: None TECHNIQUE: AP, lateral and oblique radiographs of the right shoulder FINDINGS/IMPRESSION:No acute fracture. Signed: Simon Meier Verified Date/Time: 10/18/2022 06:53:56 Electronicallysigned by: SIMON MEIER MD on 10/18/2022 06:53 AMBASIC METABOLIC [id number] 04:16:04 Test Item Value Reference Range Interpretation Comments SODIUM (BEAKER) 141 meq/L 136-145 (test code = 381) POTASSIUM 3.9 meq/L 3.5-5.1 (BEAKER) (test code = 379) CHLORIDE (BEAKER) 104 meq/L 98-107 (test code = 382) CO2 (BEAKER) 31 meq/L 22-29 H (test code = 355) BLOOD UREA 12 mg/dL 7-21 NITROGEN (BEAKER) (test code = 354) CREATININE 0.56 mg/dL 0.57-1.25 L (BEAKER) (test code = 358) GLUCOSE RANDOM 98 mg/dL 70-105 (BEAKER) (test code = 652) CALCIUM (BEAKER) 9.2 mg/dL 8.4-10.2 (test code = 697) EGFR ([facility]) 101 Interpretatio n of eGFR (test code = mL/min/1.73 values Stage De scription 1092) sq m Result G1 Norm al or high >=90 G2 Mildly decreased 60-89 G3a Mildl y to moderately 45-5 9 G3b Moderately to s everely 30-44 G4 Severl y decreased 15-29 G5 Kidney failure <15Reported eGF R is based on the CKD-EPI 2020 equation that d oes not use a race coefficientEsti mated GFR is not as accur ate as Creatinine Iliana vale in predicting glom erular filtration rate . Estimated GFR is not appl icable for dialysis patien ts Paper Machine Supervisor ID - ROBERTO GREENWOODRON, TIBC, % SAT. (WITHOUT FERRITIN)2022-10-18 04:15:03 Test Item Value Reference Range Interpretation Comments IRON ([facility]) (test code = 547) 19.0 ug/dL 40.0-160.0 L TOTAL IRON BINDING CAPACITY 193 ug/dL 250-450 L (BEAKER) (test code = 769) IRON % SATURATION (2) (AKER) 10 % 20-55 L (test code = 2590) Paper Machine Supervisor ID - BSVANCOMYCIN LEVEL, [id number] 04:12:08 Test Item Value Reference Range Interpretation Comments VANCOMYCIN TROUGH ([facility]) (test 10.7 ug/mL 10.0-20.0 code = 522) Paper Machine Supervisor ID - ROBERTO WPOCT-GLUCOSE [id number] 21:41:24 Test Item Value Reference Range Interpretation Comments POC-GLUCOSE METER 123 mg/dL 70-110 H : Notified RN/MD: ([facility]) (test code = TESTED AT [facility] 6720 1538) [facility], [address]: Paper Machine Supervisor/Techni ria ID = [id number] for Cedric murry Valentinaalexander POCT-GLUCOSE [id number] 16:57:33 Test Item Value Reference Range Interpretation Comments POC-GLUCOSE METER 119 mg/dL 70-110 H : [facility] ([facility]) (test code [facility], = 1538) [address]: Paper Machine Supervisor/Techni ria ID = [id number] for Storey-Shead (con tract), Jess FL, ESOPH, SWALLOW FUNCTION, WITH CINE OR [id number] 15:50:00Reason for exam:->Dysphgia and aspiration [facility] 1955 Sex: FFINALREPORT Modified barium swallow exam with speech pathology service CLINICAL HISTORY: Dysphagia and aspiration IMPRESSION: Please see the speech pathology service report for details.Barium contrast of multiple consistencies is given to the patient to swallow. Fluoroscopic observation is performed during swallowing. Fluoro time: 2.0 minutes Number of images: 1 cine clip Signed: Scooby Payan Verified Date/Time: 10/17/2022 15:50:40 Reading Location: [address] Consult Reading Room POCT-GLUCOSE [id number] 13:02:15 Test Item Value Reference Range Interpretation Comments POC-GLUCOSE METER 112 mg/dL 70-110 H : TESTED A T [facility] 6720 ([employer]) (test code [facility], = 1538) [address]: Paper Machine Supervisor/Techni ria ID = [id number] for Storey-Shead (con tract), Jess POCT-GLUCOSE [id number] 08:59:26 Test Item Value Reference Range Interpretation Comments POC-GLUCOSE METER 95 mg/dL 70-110 : TESTED A T [facility] 6720 ([employer]) (test code [facility], = 1538) [address]: Paper Machine Supervisor/Techni ria ID = [id number] for [employer] (contract), Gabbie thia BASIC METABOLIC [id number] 07:45:27 Test Item Value Reference Range Interpretation Comments SODIUM (BEAKER) 139 meq/L 136-145 (test code = 381) POTASSIUM 3.7 meq/L 3.5-5.1 (BEAKER) (test code = 379) CHLORIDE (BEAKER) 104 meq/L 98-107 (test code = 382) CO2 (BEAKER) 28 meq/L 22-29 (test code = 355) BLOOD UREA 11 mg/dL 7-21 NITROGEN (BEAKER) (test code = 354) CREATININE 0.54 mg/dL 0.57-1.25 L (BEAKER) (test code = 358) GLUCOSE RANDOM 113 mg/dL 70-105 H (BEAKER) (test code = 652) CALCIUM (BEAKER) 8.9 mg/dL 8.4-10.2 (test code = 697) EGFR (BEAKER) 102 Interpretatio n of eGFR (test code = mL/min/1.73 values Stage De scription 1092) sq m Result G1 Evelyn l or high >=90 G2 Mildly decreased 60-89 G3a Mildl y to moderately 45-5 9 G3b Moderately to s everely 30-44 G4 Severl y decreased 15-29 G5 Kidney failure <15Reported eGF R is based on the CKD-EPI 2020 equation that d oes not use a race coefficientEsti mated GFR is not as accur ate as Creatinine Iliana vale in predicting glom erular filtration rate . Estimated GFR is not appl icable for dialysis patien ts Paper Machine Supervisor ID - [id number] (HEMOGRAM ONLY)2022-10-17 05:03:28 Test Item Value Reference Range Interpretation Comments WHITE BLOOD CELL COUNT (BEAKER) 7.9 K/ L 3.5-10.5 (test code = 775) RED BLOOD CELL COUNT (BEAKER) 3.45 M/ L 3.93-5.22 L (test code = 761) HEMOGLOBIN (BEAKER) (test code = 9.2 GM/DL 11.2-15.7 L 410) HEMATOCRIT (BEAKER) (test code = 29.3 % 34.1-44.9 L 411) MEAN CORPUSCULAR VOLUME (BEAKER) 85 fL 79-95 (test code = 753) MEAN CORPUSCULAR HEMOGLOBIN 26.7 pg 25.6-32.2 (BEAKER) (test code = 751) MEAN CORPUSCULAR HEMOGLOBIN CONC 31.4 GM/DL 32.2-35.5 L ([facility]) (test code = 752) RED CELL DISTRIBUTION WIDTH 14.2 % 11.7-14.4 ([facility]) (test code = 412) PLATELET COUNT ([facility]) (test 328 K/CU MM 150-450 code = 756) MEAN PLATELET VOLUME ([facility]) 9.9 fL 9.4-12.3 (test code = 754) NUCLEATED RED BLOOD CELLS 0 /100 WBC 0-0 ([facility]) (test code = 413) POCT-GLUCOSE [id number] 21:38:52 Test Item Value Reference Range Interpretation Comments POC-GLUCOSE METER 130 mg/dL 70-110 H : TESTED A T [facility] 6720 ([facility]) (test code = [facility], 153) [address]: Paper Machine Supervisor/Techni ria ID = [id number] for FRANK ARAIZA POCT-GLUCOSE [id number] 18:19:29 Test Item Value Reference Range Interpretation Comments POC-GLUCOSE METER 106 mg/dL 70-110 : TESTED A T [facility] 6720 ([facility]) (test code = [facility], 153) [address]: Paper Machine Supervisor/Techni ria ID = [id number] for AN LEIDY BLAIR POCT-GLUCOSE [id number] 12:48:20 Test Item Value Reference Range Interpretation Comments POC-GLUCOSE METER 113 mg/dL 70-110 H : Notified RN/MD: ([facility]) (test code = TESTED AT [facility] 6720 1537) [facility], [address]: Paper Machine Supervisor/Techni ria ID = [id number] for LEIDY MCKINLEY MRSA [id number] 11:23:09 Test Item Value Reference Range Interpretation Comments CULTURE ([facility]) A 4+ Methicil dickson resistant (test code = 1095) Staphyloc occus aureus RAD, CHEST, 1 VIEW, NON [id number] 09:37:00Reason for exam:->sobShould this be performed at the bedside?->Yes [facility] 1955 Sex: FFINALREPORT EXAMINATION: RAD, CHEST, 1 VIEW, NON DEPT. INDICATION: 67-year-old female with shortness of breath. COMPARISON: CTA pulmonary angiogram dated 10/13/2022. FINDINGS/ IMPRESSION:Mild right diffuse interstitial opacities, slightly increased from prior examination. No pleural effusion or pneumothorax. Other findings appear unchanged. Signed: Addie Bianchi Verified Date/Ti me: 10/16/2022 09:37:32 Reading Location: [address] Ortho Consult Reading Room -GLUCOSE [id number] 08:17:04 Test Item Value Reference Range Interpretation Comments POC-GLUCOSE METER 95 mg/dL 70-110 : TESTED A T [facility] 6720 (BEAKER) (test code = [facility], 1538) [address]: Paper Machine Supervisor/Techni ria ID = [id number] for LEIDY TAY POCT-GLUCOSE [id number] 06:39:54 Test Item Value Reference Range Interpretation Comments POC-GLUCOSE METER 96 mg/dL 70-110 : TESTED A T [facility] 6720 (BEAKER) (test code = [facility], 1538) [address]: Paper Machine Supervisor/Techni ria ID = [id number] for Shilpa Suarez VANCOMYCIN LEVEL, [id number] 00:20:23 Test Item Value Reference Range Interpretation Comments VANCOMYCIN TROUGH ([facility]) (test 3.6 ug/mL 10.0-20.0 L code = 522) Paper Machine Supervisor ID - EDPOCT-GLUCOSE [id number] 18:18:01 Test Item Value Reference Range Interpretation Comments POC-GLUCOSE METER 106 mg/dL 70-110 : TESTED A T [facility] 6720 (BEAKER) (test code = [place], 1538) [address]: Paper Machine Supervisor/Techni ria ID = [id number] for Estrada BASIC METABOLIC [id number] 07:05:06 Test Item Value Reference Range Interpretation Comments SODIUM (BEAKER) 138 meq/L 136-145 (test code = 381) POTASSIUM 3.7 meq/L 3.5-5.1 (BEAKER) (test code = 379) CHLORIDE (BEAKER) 104 meq/L 98-107 (test code = 382) CO2 (BEAKER) 26 meq/L 22-29 (test code = 355) BLOOD UREA 13 mg/dL 7-21 NITROGEN (BEAKER) (test code = 354) CREATININE 0.60 mg/dL 0.57-1.25 (BEAKER) (test code = 358) GLUCOSE RANDOM 94 mg/dL 70-105 (BEAKER) (test code = 652) CALCIUM (BEAKER) 9.2 mg/dL 8.4-10.2 (test code = 697) EGFR (BEAKER) 100 Interpretatio n of eGFR (test code = mL/min/1.73 values Stage De scription 1092) sq m Result G1 Evelyn l or high >=90 G2 Mildly decreased 60-89 G3a Mildl y to moderately 45-5 9 G3b Moderately to s everely 30-44 G4 Severl y decreased 15-29 G5 Kidney failure <15Reported eGF R is based on the CKD-EPI 2020 equation that d oes not use a race coefficientEsti mated GFR is not as accur ate as Creatinine Iliana vlae in predicting glom erular filtration rate . Estimated GFR is not appl icable for dialysis patien ts Paper Machine Supervisor ID - [id number] 07:05:06 Test Item Value Reference Range Interpretation Comments MAGNESIUM (BEAKER) (test code = 1.9 mg/dL 1.6-2.6 627) Paper Machine Supervisor ID - [id number] 07:05:06 Test Item Value Reference Range Interpretation Comments PHOSPHORUS (BEAKER) (test code = 2.3 mg/dL 2.3-4.7 604) Paper Machine Supervisor ID - MMCBC W/PLT COUNT & AUTO [id number] 05:56:41 Test Item Value Reference Range Interpretation Comments WHITE BLOOD CELL COUNT (BEAKER) 9.9 K/ L 3.5-10.5 (test code = 775) RED BLOOD CELL COUNT (BEAKER) 3.28 M/ L 3.93-5.22 L (test code = 761) HEMOGLOBIN (BEAKER) (test code = 9.1 GM/DL 11.2-15.7 L 410) HEMATOCRIT (BEAKER) (test code = 28.8 % 34.1-44.9 L 411) MEAN CORPUSCULAR VOLUME (BEAKER) 88 fL 79-95 (test code = 753) MEAN CORPUSCULAR HEMOGLOBIN 27.7 pg 25.6-32.2 (BEAKER) (test code = 751) MEAN CORPUSCULAR HEMOGLOBIN CONC 31.6 GM/DL 32.2-35.5 L (BEAKER) (test code = 752) RED CELL DISTRIBUTION WIDTH 14.3 % 11.7-14.4 (BEAKER) (test code = 412) PLATELET COUNT (BEAKER) (test 297 K/CU MM 150-450 code = 756) MEAN PLATELET VOLUME (BEAKER) 10.2 fL 9.4-12.3 (test code = 754) NUCLEATED RED BLOOD CELLS 0 /100 WBC 0-0 (BEAKER) (test code = 413) NEUTROPHILS RELATIVE PERCENT 79 % (BEAKER) (test code = 429) LYMPHOCYTES RELATIVE PERCENT 13 % (BEAKER) (test code = 430) MONOCYTES RELATIVE PERCENT 5 % (BEAKER) (test code = 431) EOSINOPHILS RELATIVE PERCENT 1 % (BEAKER) (test code = 432) BASOPHILS RELATIVE PERCENT 0 % (BEAKER) (test code = 437) NEUTROPHILS ABSOLUTE COUNT 7.79 K/ L 1.56-6.13 H (BEAKER) (test code = 670) LYMPHOCYTES ABSOLUTE COUNT 1.33 K/ L 1.18-3.74 (BEAKER) (test code = 414) MONOCYTES ABSOLUTE COUNT (BEAKER) 0.54 K/ L 0.24-0.36 H (test code = 415) EOSINOPHILS ABSOLUTE COUNT 0.12 K/ L 0.04-0.36 (BEAKER) (test code = 416) BASOPHILS ABSOLUTE COUNT (BEAKER) 0.04 K/ L 0.01-0.08 (test code = 417) IMMATURE GRANULOCYTES-RELATIVE 1.00 % 0.00-1.00 PERCENT (PANKAJ) (test code = 2801) POCT-GLUCOSE [id number] 05:46:58 Test Item Value Reference Range Interpretation Comments POC-GLUCOSE METER 97 mg/dL 70-110 : TESTED A T [facility] 6720 ([facility]AJ) (test code = [place], 1538) [address]: Paper Machine Supervisor/Techni ria ID = [id number] for SIXTO ADHIKARI POCT-GLUCOSE [id number] 23:17:58 Test Item Value Reference Range Interpretation Comments POC-GLUCOSE METER 97 mg/dL 70-110 : TESTED A T [facility] 6720 (PANKAJ) (test code = [facility], 1538) [address]: Paper Machine Supervisor/Techni ria ID = [id number] for Keyona Shafer U/S, RENAL, [id number] 09:39:00Reason for exam:->Frequebt UTI's [facility] 1955 Sex: FFINALREPORT Renal ultrasound History: Frequent urinary tract infections Comparison: None Findings: Bilateral kidneys demonstrate normal echotexture and preserved cortical thickness. No hydronephrosis, renal calculus, or renal mass is seen. Right kidney measures 9.6 x 4.6 x 4.7cm. Left kidney measures 10.0 x 5.4 x 5.0cm. Urinary bladder is decompressed, limiting evaluation. No definite bladder wall thickening or intraluminal mass. Impression: No significant sonographic findings in thekidneys. Signed: Rodolfo Murry MDReport Verified Date/Time: 10/14/2022 09:39:22 [id number] 06:13:26 Test Item Value Reference Range Interpretation Comments PHOSPHORUS (BEAKER) 2.0 mg/dL 2.3-4.7 L Specimen slightly (test code = 604) hemolyzed Paper Machine Supervisor ID - MARCOBASIC METABOLIC [id number] 06:13:26 Test Item Value Reference Range Interpretation Comments SODIUM (BEAKER) 140 meq/L 136-145 (test code = 381) POTASSIUM 4.2 meq/L 3.5-5.1 Specimen slight ly (BEAKER) (test hemolyzed code = 379) CHLORIDE (BEAKER) 106 meq/L 98-107 (test code = 382) CO2 (BEAKER) 26 meq/L 22-29 (test code = 355) BLOOD UREA 17 mg/dL 7-21 NITROGEN (BEAKER) (test code = 354) CREATININE 0.66 mg/dL 0.57-1.25 Specimen slight ly (BEAKER) (test hemolyzed code = 358) GLUCOSE RANDOM 82 mg/dL 70-105 (BEAKER) (test code = 652) CALCIUM (BEAKER) 9.2 mg/dL 8.4-10.2 (test code = 697) EGFR (BEAKER) 97 Interpretatio n of eGFR (test code = mL/min/1.73 values Stage D escription 1092) sq m Result G1 Evelyn l or high >=90 G2 Mildly decreased 60-89 G3a Mildl y to moderately 45-5 9 G3b Moderately to s everely 30-44 G4 Severl y decreased 15-29 G5 Kidney failure <15Reported eGF R is based on the CKD-EPI 2020 equation that d oes not use a race coefficientEsti mated GFR is not as accur ate as Creatinine Iliana vale in predicting glom erular filtration rate . Estimated GFR is not appl icable for dialysis patien ts Paper Machine Supervisor ID - [id number] 06:13:25 Test Item Value Reference Range Interpretation Comments MAGNESIUM (BEAKER) 2.1 mg/dL 1.6-2.6 Specimen slightly (test code = 627) hemolyzed Paper Machine Supervisor ID - MARCOCBC W/PLT COUNT & AUTO [id number] 05:42:36 Test Item Value Reference Range Interpretation Comments WHITE BLOOD CELL COUNT (BEAKER) 10.8 K/ L 3.5-10.5 H (test code = 775) RED BLOOD CELL COUNT (BEAKER) 3.32 M/ L 3.93-5.22 L (test code = 761) HEMOGLOBIN (BEAKER) (test code = 9.0 GM/DL 11.2-15.7 L 410) HEMATOCRIT (BEAKER) (test code = 29.0 % 34.1-44.9 L 411) MEAN CORPUSCULAR VOLUME (BEAKER) 87 fL 79-95 (test code = 753) MEAN CORPUSCULAR HEMOGLOBIN 27.1 pg 25.6-32.2 (BEAKER) (test code = 751) MEAN CORPUSCULAR HEMOGLOBIN CONC 31.0 GM/DL 32.2-35.5 L (BEAKER) (test code = 752) RED CELL DISTRIBUTION WIDTH 14.3 % 11.7-14.4 (BEAKER) (test code = 412) PLATELET COUNT (BEAKER) (test 302 K/CU MM 150-450 code = 756) MEAN PLATELET VOLUME (BEAKER) 10.3 fL 9.4-12.3 (test code = 754) NUCLEATED RED BLOOD CELLS 0 /100 WBC 0-0 (BEAKER) (test code = 413) NEUTROPHILS RELATIVE PERCENT 83 % (BEAKER) (test code = 429) LYMPHOCYTES RELATIVE PERCENT 11 % (BEAKER) (test code = 430) MONOCYTES RELATIVE PERCENT 5 % (BEAKER) (test code = 431) EOSINOPHILS RELATIVE PERCENT 1 % (BEAKER) (test code = 432) BASOPHILS RELATIVE PERCENT 0 % (BEAKER) (test code = 437) NEUTROPHILS ABSOLUTE COUNT 8.95 K/ L 1.56-6.13 H (BEAKER) (test code = 670) LYMPHOCYTES ABSOLUTE COUNT 1.17 K/ L 1.18-3.74 L (BEAKER) (test code = 414) MONOCYTES ABSOLUTE COUNT (BEAKER) 0.56 K/ L 0.24-0.36 H (test code = 415) EOSINOPHILS ABSOLUTE COUNT 0.06 K/ L 0.04-0.36 (BEAKER) (test code = 416) BASOPHILS ABSOLUTE COUNT (BEAKER) 0.03 K/ L 0.01-0.08 (test code = 417) IMMATURE GRANULOCYTES-RELATIVE 0.60 % 0.00-1.00 PERCENT (BEAKER) (test code = 2801) POCT-GLUCOSE [id number] 05:16:07 Test Item Value Reference Range Interpretation Comments POC-GLUCOSE METER 86 mg/dL 70-110 : TESTED A T [facility] 6720 (BEAKER) (test code = [facility], 1538) [address]: Paper Machine Supervisor/Techni ria ID = [id number] for Keyona Shafer POCT-GLUCOSE [id number] 23:27:40 Test Item Value Reference Range Interpretation Comments POC-GLUCOSE METER 91 mg/dL 70-110 : TESTED A T [facility] 6720 (BEAKER) (test code = [facility], 1538) [address]: Paper Machine Supervisor/Techni ria ID = [id number] for Keyona Shafer CT, CHEST WITH IV CONTRAST- PE TEST [id number] 22:44:00Unlisted Reason for Exam - Click Yes and Enter Reason Below->No [facility] : 1955 Sex: FFINALREPORT CT of the chest, pulmonary embolism protocol Clinical History: PE suspected, intermediate prob, positive D-dimer Technique: Precontrast axial images at the level of the pulmonary outflow tract are obtained for the purpose of contrast bolus tracking. Postcontrast axial images of the chest are subsequently obtained with optimal pulmonary arterial enhancement followed by delayed postcontrast images. Coronal 2D reformatted images are reviewed. Axial maximum intensity projection (MIP) images are also reviewed. This exam was performed according to our departmental dose optimization program which includes automated exposure control, adjustment of the mA and/or kV according to p atient's size and/or use of iterative reconstructive technique. Comparison Film: Radiograph dated October 13, 2022 Discussion: No filling defects are identified within the pulmonary arteries to suggest acute pulmonary embolism. Visualized thyroid gland is normal. No supraclavicular, or axillary lymphadenopathy. There are a few mildly enlarged mediastinal lymph nodes, nonspecific and probably reactive. Heart and pericardium are unremarkable. There are scattered small foci of mixed density consolidation, as well as centrilobular nodules in both lungs, right greater than left, probably reflecting pneumonia or aspiration. The central airways are patent, no significant bronchiectasis, or bronchial wall th ickening. No pleural effusion. Partially imaged upper abdomen is without worrisome findings. Bony structures demonstrate mild degenerative changes. Impression: No PE is identified. Multifocal consolidation and centrilobular nodules in both lungs, right greater than left, correlate clinically for pneumo shane or aspiration. Mildly enlarged mediastinal lymph nodes are nonspecific and probably reactive. Signed: Scooby Payaneport Verified Date/Time: 10/13/2022 22:44:17 ALYSIS W/ REFLEX URINE [id number] 12:01:35 Test Item Value Reference Range Interpretation Comments COLOR (BEAKER) (test code = 470) Yellow CLARITY (BEAKER) (test code = 469) Hazy SPECIFIC GRAVITY UA (BEAKER) (test 1.026 1.001-1.035 code = 468) PH UA (BEAKER) (test code = 467) 6.0 5.0-8.0 PROTEIN UA (BEAKER) (test code = 50 mg/dL Negative A 464) GLUCOSE UA (BEAKER) (test code = 100 mg/dL Negative A 365) KETONES UA (BEAKER) (test code = Trace Negative A 371) BILIRUBIN UA (BEAKER) (test code = Negative Negative 462) BLOOD UA (BEAKER) (test code = 461) Negative Negative NITRITE UA (BEAKER) (test code = Negative Negative 465) LEUKOCYTE ESTERASE UA (BEAKER) Small Negative A (test code = 466) UROBILINOGEN UA (BEAKER) (test code 0.2 0.2-1.0 = 463) RBC UA (BEAKER) (test code = 519) 5 /HPF WBC UA (BEAKER) (test code = 520) 10 /HPF SQUAMOUS EPITHELIAL (BEAKER) (test 18 /HPF code = 516) AMORPHOUS CRYSTALS (BEAKER) (test Moderate code = 1584) SOURCE(BEAKER) (test code = 2795) Paper Machine Supervisor ID - [auto]Paper Machine Supervisor ID - [auto]Paper Machine Supervisor ID - [auto]Paper Machine Supervisor ID - tech LEGIONELLA ANTIGEN, [id number] 10:07:37 Test Item Value Reference Range Interpretation Comments L. PNEUMOPHILA Negative - see Negative Negative fo r L. SEROGP 1 UR AG comment pneumophila (BEAKER) (test code serogrou p 1 antigen, = 1156) suggesting no r ecent or current infe ction with this serog roup. Legionellosis c annot be ruled out si nce other serogroup s and species may cau se disease. STREP PNEUMONIAE [id number] 10:06:24 Test Item Value Reference Range Interpretation Comments STREP PNEUMONIAE Presumptive negative Presumptive negative ANTIGEN (BEAKER) for pneumococcal for pneumococcal (test code = 1615) pneumonia - see pneumonia - see comment commen Presumptive negative for pneumococcal pneumonia, suggesting no current or recent pneumococcal infection. Infection due to S. pneumoniae cannot be ruled out since the antigen present in the sample may be below the detection limit of the test.RAD, CHEST, 1 VIEW, NON [id number] 10:03:00Reason for exam:- >PneumoniaShould this be performed at the bedside?->Yes [facility] 1955 Sex: FFINALREPORT CLINICAL HISTORY: diarrhea TECHNIQUE: 1 view of the chest. Supine views of the abdomen. COMPARISON: None IMPRESSION: There are prominent interstitial lung markings bilaterally with focal airspace opacity and nodularity in the right lower lung. Further evaluation with chest CT is recommended to exclude neoplasm. There are no significant pleural effusions. The cardiomediastinal silhouette is magnified by technique. The bowel gas pattern is nonspecific. Free air and air-fluid levels are not definitively seen, but cannot be excluded on the supine view. Signed: Saniya Barrera MDReport Verified Date/Time: 10/13/2022 10:03:50 RAD, ABDOMEN/KUB, 1 VIEW [id number] 10:03:00Reason for exam:->diarrheaShould this be performed at the bedside?->Yes [facility] 1955 Sex: FFINALREPORT CLINICAL HISTORY: diarrhea TECHNIQUE: 1 view of the chest. Supine views of the abdomen. COMPARISON: None IMPRESSION: There are prominent interstitial lung markings bilaterally with focal airspace opacity and nodularity in the right lower lung. Further evaluation with chest CT is recommended to exclude neoplasm. There are no significant pleural effusions. The cardiomediastinal silhouette is magnified by technique. The bowel gas pattern is nonspecific. Free air and air-fluid levels are not definitively seen, but cannot be excluded on the supine view. Signed: Saniya Barrera MDReport Verified Date/Time: 10/13/2022 10:03:50 SARS-COV2/RT-PCR ([facility])2022-10-13 09:50:07 Test Item Value Reference Range Interpretation Comments SARS-COV2/RT-PCR Negative Negative The SARS-Co V-2 target (test code = nucleic acids a re not 0449040) detected in thi s specimen. Negative result s do not preclude SARS-C oV-2 infection and s hould not be used as the senia e basis for patient managem ent decisions. Nega tive results must be combine d with clinical observ ations, patient history , and epidemiological information. A false negativ e result may occur if a spec imen is improperly eulalia ected, transported or handled. This SARS CoV-2 test is a rapid, real-time RT-PC R test intended for th e qualitative detection of nu cleic acid from SARS-CoV-2 in a nasopharyngeal swab specimen collected from individuals suspected of CO VID-19 by their healthcar e provider. This test has been authorized by FDA under an EUA for use by authorized laboratories. This test is only authorized for the duration of the declaration that circumstances exist justifying the authorization of emergency use of in vitro diagnostic tests for detection and/or diagnosis of COVID-19 under Section 564(b)(1) of the Federal Food, Drug and Cosmetic Act, 21 U.S.C. 360bbb-3(b)(1), unless the authorization is terminated or revoked sooner. Fact Sheet for Healthcare Providers: https://www.Treedom.co m/Documents/Xpert%20Xpress%20SARS%20CoV-2/Fact%20Sheets/885-1362%16RIKM-PBC-3%20 HEALTHCARE%20PROVIDERS%20FACT%20SHEET.pdf Fact Sheet for Healthcare Patients: https://www.Glow[employer]/Documents/Xpert%20Xp ress%20SARS%20CoV-2/Fact%20Sheets/499-3801%58CFYV-RHO-1%20PATIENT%20FACT%20SHEET .pdfB-TYPE NATRIURETIC FACTOR (BNP)2022-10-13 09:19:50 Test Item Value Reference Range Interpretation Comments B-TYPE NATRIURETIC PEPTIDE (BEAKER) 459 pg/mL 0-100 H (test code = 700) Paper Machine Supervisor ID - RADHA(CELLAVISION MANUAL DIFF)2022-10-13 08:21:27 Test Item Value Reference Range Interpretation Comments NEUTROPHILS - REL 81 % (CELLAVISION)(BEAKER) (test code = 2816) LYMPHOCYTES - REL 4 % (CELLAVISION)(BEAKER) (test code = 2817) BANDS - REL (CELLAVISION)(BEAKER) 15 % 0-10 H (test code = 2826) NEUTROPHILS - ABS 12.64 K/ul 1.56-6.13 H (CELLAVISION)(BEAKER) (test code = 2830) LYMPHOCYTES - ABS 0.62 K/ul 1.18-3.74 L (CELLAVISION)(BEAKER) (test code = 2831) BANDS - ABS (CELLAVISION)(BEAKER) 2.34 K/uL 0.00-0.80 H (test code = 2840) TOTAL COUNTED (BEAKER) (test code 100 = 1351) PLT MORPHOLOGY (BEAKER) (test code Normal = 486) SMUDGE CELLS (BEAKER) (test code = Present 1371) POIKILOCYTES (BEAKER) (test code = 1+ few 966) SPHEROCYTES (BEAKER) (test code = 1+ few 768) OVALOCYTES (BEAKER) (test code = 1+ few 477) ARTIFACT (CELLAVISION)(BEAKER) Present (test code = 3432) PLATELET CONCENTRATION Adequate (CELLAVISION)(BEAKER) (test code = 3438) Paper Machine Supervisor ID - Brandon comments: Slide comments:CBC W/PLT COUNT & AUTO [id number] 08:21:26 Test Item Value Reference Range Interpretation Comments WHITE BLOOD CELL COUNT (BEAKER) 15.6 K/ L 3.5-10.5 H (test code = 775) RED BLOOD CELL COUNT (BEAKER) 3.67 M/ L 3.93-5.22 L (test code = 761) HEMOGLOBIN (BEAKER) (test code = 10.1 GM/DL 11.2-15.7 L 410) HEMATOCRIT (BEAKER) (test code = 31.8 % 34.1-44.9 L 411) MEAN CORPUSCULAR VOLUME (BEAKER) 87 fL 79-95 (test code = 753) MEAN CORPUSCULAR HEMOGLOBIN 27.5 pg 25.6-32.2 (BEAKER) (test code = 751) MEAN CORPUSCULAR HEMOGLOBIN CONC 31.8 GM/DL 32.2-35.5 L (BEAKER) (test code = 752) RED CELL DISTRIBUTION WIDTH 14.2 % 11.7-14.4 (BEAKER) (test code = 412) PLATELET COUNT (BEAKER) (test 308 K/CU MM 150-450 code = 756) MEAN PLATELET VOLUME (BEAKER) 10.0 fL 9.4-12.3 (test code = 754) NUCLEATED RED BLOOD CELLS 0 /100 WBC 0-0 (BEAKER) (test code = 413) HEPATIC FUNCTION [id number] 06:17:18 Test Item Value Reference Range Interpretation Comments TOTAL PROTEIN (BEAKER) 6.2 gm/dL 6.0-8.3 Speci men slightly (test code = 770) hemolyzed ALBUMIN (BEAKER) (test 3.2 g/dL 3.5-5.0 L Speci men slightly code = 1145) hemolyzed BILIRUBIN TOTAL 0.3 mg/dL 0.2-1.2 Specimen sli ghtly (BEAKER) (test code = hemoly zed 377) BILIRUBIN DIRECT 0.1 mg/dL 0.1-0.5 Specimen sl ightly (BEAKER) (test code = hemoly zed 706) ALKALINE PHOSPHATASE 63 U/L 40-150 (BEAKER) (test code = 346) AST (SGOT) (BEAKER) 21 U/L 5-34 Specimen slightly (test code = 353) hemolyzed ALT (SGPT) (BEAKER) 16 U/L 6-55 Specimen slightly (test code = 347) hemolyzed Paper Machine Supervisor ID - [id number] 06:17:17 Test Item Value Reference Range Interpretation Comments PHOSPHORUS (BEAKER) 3.6 mg/dL 2.3-4.7 Specimen slightly (test code = 604) hemolyzed Paper Machine Supervisor ID - MARCOBASIC METABOLIC [id number] 06:17:17 Test Item Value Reference Range Interpretation Comments SODIUM (BEAKER) 140 meq/L 136-145 (test code = 381) POTASSIUM 4.2 meq/L 3.5-5.1 Specimen slight ly (BEAKER) (test hemolyzed code = 379) CHLORIDE (BEAKER) 106 meq/L 98-107 (test code = 382) CO2 (BEAKER) 26 meq/L 22-29 (test code = 355) BLOOD UREA 17 mg/dL 7-21 NITROGEN (BEAKER) (test code = 354) CREATININE 0.87 mg/dL 0.57-1.25 Specimen slight ly (BEAKER) (test hemolyzed code = 358) GLUCOSE RANDOM 151 mg/dL 70-105 H (BEAKER) (test code = 652) CALCIUM (BEAKER) 9.0 mg/dL 8.4-10.2 (test code = 697) EGFR (BEAKER) 74 Interpretatio n of eGFR (test code = mL/min/1.73 values Stage De scription 1092) sq m Result G1 Evelyn l or high >=90 G2 Mildly decreased 60-89 G3a Mildl y to moderately 45-5 9 G3b Moderately to s everely 30-44 G4 Severl y decreased 15-29 G5 Kidney failure <15Reported eGF R is based on the CKD-EPI 2020 equation that d oes not use a race coefficientEsti mated GFR is not as accur ate as Creatinine Iliana vale in predicting glom erular filtration rate . Estimated GFR is not appl icable for dialysis patien ts Paper Machine Supervisor ID - [id number] 06:17:17 Test Item Value Reference Range Interpretation Comments MAGNESIUM (BEAKER) 2.0 mg/dL 1.6-2.6 Specimen slightly (test code = 627) hemolyzed Paper Machine Supervisor ID - [id number] 05:55:27 Test Item Value Reference Range Interpretation Comments PROCALCITONIN (BEAKER) (test code 8.98 ng/mL <0.05 H = 3036) SEPSIS RISK (ng/mL)Low: 0.05-0.50Intermediate: 0.51-2.00High: >=2.01HIGH SENSITIVITY TROPONIN [id number] 05:36:05 Test Item Value Reference Range Interpretation Comments HIGH SENSITIVITY TROPONIN I (test 55 pg/ml <=17 H code = 4157236) Paper Machine Supervisor ID - Cirilo ANSWERING SERVICE AGENT STAT High Sensitivity Troponin-I results should be used in conjunction with other diagnostic information such as ECG, clinical observations and information, and patientsymptoms to aid in the diagnosis of OK. LACTIC ACID, [id number] 05:33:26 Test Item Value Reference Range Interpretation Comments LACTATE BLOOD VENOUS 1.58 mmol/L 0.50-2.00 Specime n slightly (2) (PANKAJ) (test hemolyzed code = 2872) Paper Machine Supervisor ID - [id number] 05:27:20 Test Item Value Reference Range Interpretation Comments D-DIMER QUANTITATIVE (PANKAJ) 1.73 MG/L FEU <0.50 H (test code = 671) Intended Use: The D-Dimer Assay can be used to aid in the diagnosis of Deep Vein Thrombosis (DVT) and Pulmonary Embolism Disease (PED).In patients with low pre- test probability, various studies concerning STA Liatest D-dimer test have reported that with a cutoff value of 0.50 MG/L FEU, the Negative Predictive Value (NPV) regarding the exclusion of thrombosis is within 95-100% range. SARS-COV2/RT-PCR ([facility])2019-10-13 11:53:00 Test Item Value Reference Range Interpretation Comments SARS-COV2/RT-PCR (test Not Detected Not Detected, Negative code = 4148423) SARS-COV-2 PERFORMING LAB [facility] (test code = 0184276) Negative results do not preclude SARS-CoV-2 infection [...] of the Act.Fact Sheet for Healthcare Pro viders:https://www.Glow[employer]/Documents/Xpert%20Xpress%20SARS%20CoV-2/Fact%20Sh eets/3023802%30MQDJ-RWZ-5%20HEALTHCARE%20PROVIDERS%20FACT%20SHEET.pdfFact Sheet for Healthcare Patients:https://www.Zopim/Documents/Xpert%20Xpress%20SARS%20CoV-2/Fact%20Sheets/3023801%20SARS-COV -2%20PATIENT%20FACT%20SHEET.pdfPerforming Laboratory:[facility] [place] [address]
--- NOTE | 2023-01-01 11:53 | RAD REPORT ---
[facility] CLINICAL HISTORY: Congestion;Cough COMPARISON: Chest Single View dated 10/12/2022; Chest Single View dated 10/14/2019; Chest Single View dated 10/13/2019; CHEST SINGLE VIEW dated 11/04/2008 TECHNIQUE: Portable AP view of the chest. FINDINGS: The lungs are clear. Streaky bibasilar opacities, favored to represent atelectasis. No pn eumothorax or effusion. The cardiomediastinal contours are unremarkable. IMPRESSION: No acute cardiopulmonary process.
[2023-01-01] MEDS ORDERED: ACETAMINOPHEN 325 MG TABLET ONE (12:02)
[2023-01-01 13:19] LABS: Specific Gravity 1.016 (1.005-1.030); Transitional Epithelial <5 /HPF (None Seen); Urine Bacteria >50 /HPF (<20); Urine Bilirubin NEGATIVE (Negative); Urine Blood 2+ (Negative); Urine Clarity Extremely Turbid (Clear); Urine Color Yellow (Yellow); Urine Glucose NEGATIVE (Negative); Urine Mucus Slight /HPF (None Seen); Urine Protein 2+ (Negative); Urine RBC 21-50 /HPF (None Seen); Urine Urobilinogen 1+ (Normal); Urine WBC Clump Rare /HPF (None Seen)
[2023-01-01] MEDS ORDERED: IBUPROFEN 400 MG TAB ONE (13:59)
[2023-01-01] MEDS ORDERED: IBUPROFEN 200 MG TAB PO ONE (13:59)
[2023-01-01] MEDS ORDERED: CEFTRIAXONE 1000 MG/VIAL ONE ×2 (14:00→14:10)
[2023-01-01] MEDS ORDERED: NA CHLORIDE 0.9% 50 ML ONE (14:00)
[2023-01-01] MEDS ORDERED: WATER FOR INJ,STERILE 10 ML ONE (14:10)
--- NOTE | 2023-01-01 15:10 | ER ---
Nurse's Notes [facility] Name: Apple Kan Age: 67 yrs Sex: Female : 1955 Arrival Date: 01/01/2023 Time: 11:01 Bed 2 Private MD: Diagnosis: UTI/ Urinary tract infection, site not specified;Acute upper respiratory infection, unspecified Presentation: 01/01 11:06 Chief complaint: EMS states: Pt from [place], sent her to be tested for the flu, ph pt reports fever, headache, chills, cough and body aches, VSS. Coronavirus screen: Vaccine status: Patient reports receiving the 2nd dose of the covid vaccine. Ebola Screen: No symptoms or risks identified at this time. Initial Sepsis Screen: Does the patient meet any 2 criteria? No. Patient's initial sepsis screen is negative. Does the patient have a suspected source of infection? No. Patient's initial sepsis screen is negative. Risk Assessment: Do you want to hurt yourself or someone else? Patient reports no desire to harm self or others. Onset of symptoms was January 01, 2023. 11:06 Method Of Arrival: EMS: [facility] ph 11:06 Acuity: ELEAZAR 3 ph Triage Assessment: 11:08 General: Appears in no apparent distress. comfortable, Behavior is calm, cooperative, ph appropriate for age, Reports. 11:23 Pain: Complains of pain in headache, body aches. Neuro: Level of Consciousness is ph awake, alert, obeys commands, Oriented to person, place, time, situation. Neuro: hx of CVA w/ R sided deficits. Cardiovascular: Capillary refill < 3 seconds in bilateral fingers Patient's skin is warm and dry. Respiratory: Airway is patent Respiratory effort is even, unlabored, Respiratory pattern is regular, symmetrical. GI: No signs and/or symptoms were reported involving the gastrointestinal system. Derm: Skin is pink, warm \T\ dry. Historical: - Allergies: 11:08 PENICILLINS; ph - PMHx: 11:08 Brain bleed; Hypertension; stroke; ph - Immunization history:: Adult Immunizations unknown. - Social history:: Smoking status: unknown. Screenin:26 [facility] ED Fall Risk Assessment (Adult) History of falling in the last 3 months, ph including since admission No falls in past 3 months (0 pts) Confusion or Disorientation No (0 pts) Intoxicated or Sedated No (0 pts) Impaired Gait Yes (1 pt) Mobility Assist Device Used Yes (1 pt) Altered Elimination Yes (1 pt) Score/Fall Risk Level 3 or more points = High Risk Oriented to surroundings, Maintained a safe environment, Hourly rounding (assess needs \T\ fall precautionary measures) done, Used ambulatory aids as needed (educated on \T\ assisted with). Abuse screen: Denies threats or abuse. Denies injuries from another. Nutritional screening: No deficits noted. Tuberculosis screening: No symptoms or risk factors identified. Assessment: 11:30 General: SEE TRIAGE ASSESSMENT. 13:16 Reassessment: Patient appears in no apparent distress at this time. Patient and/or ph family updated on plan of care and expected duration. Pain level reassessed. Patient is alert, oriented x 3, equal unlabored respirations, skin warm/dry/pink. 15:46 Reassessment: Report given to MARIA ISABEL Hong at [facility], stated would [facility] call back for ETA of transportation for patient. 16:34 Reassessment: Patient appears in no apparent distress at this time. Patient and/or vg1 family updated on plan of care and expected duration. Pain level reassessed. Patient is alert, oriented x 3, equal unlabored respirations, skin warm/dry/pink. Patient states feeling better. 16:35 Reassessment: [facility] at pt bedside to transport back to [facility]. 1 Vital Signs: 11:06 BP 135 / 55; Pulse 78; Resp 18; Temp 101.2(O); Pulse Ox 95% on R/A; Weight 58.97 kg; ph Height 5 ft. 1 in. ; 11:38 BP 130 / 49; Pulse 77; Resp 15; Pulse Ox 95% ; jl7 13:06 BP 137 / 68; Pulse 81; Resp 15; Pulse Ox 94% ; jl7 13:08 Temp 101.2(O); jl7 14:13 BP 133 / 64; Pulse 81; Resp 18; Pulse Ox 95% on R/A; ph 15:03 BP 137 / 68; Pulse 73; Resp 16; Temp 98.5; Pulse Ox 95% ; vg1 16:35 BP 114 / 54; Pulse 70; Resp 16; Pulse Ox 96% on R/A; vg1 11:06 Body Mass Index 24.56 (58.97 kg, 154.94 cm) ph ED Course: 11:06 Patient arrived in ED. kb 11:06 Sarahi Berg FNP-C [facility]. kb 11:06 Naun Teixeira MD is Attending Physician. kb 11:06 Felisa Armenta, RN is Primary Nurse. ph 11:08 Triage completed. ph 11:08 Arm band placed on Patient placed in an exam room, on a stretcher. ph 11:16 SARS-COV-2 RT PCR Sent. hb 11:16 Flu Sent. hb 11:27 Patient has correct armband on for positive identification. Bed in low position. Call ph light in reach. Side rails up X 1. Pulse ox on. NIBP on. 11:37 Chest Single View XRAY In Process Unspecified. EDMS 13:08 Urine collected: straight cath specimen, cloudy. Straight cath inserted, using sterile jl7 technique, 16 Fr. Specimen obtained. Returned cloudy urine. Patient tolerated well. 14:40 Primary Nurse role handed off by Felisa Armenta RN jl7 14:42 Kaleigh Storm, RN is Primary Nurse. vg1 16:36 No provider procedures requiring assistance completed. Patient did not have IV access vg1 during this emergency room visit. Administered Medications: 11:55 Drug: Acetaminophen PO 650 mg Route: PO; ph 13:30 Follow up: Response: No adverse reaction; Temperature is unchanged ph 14:13 Drug: Ibuprofen PO 600 mg Route: PO; ph 15:05 Follow up: Response: No adverse reaction; Temperature is decreased vg1 14:13 Drug: Rocephin IV 1 grams Route: IV; Rate: calculated rate; Site: Other; ph 16:36 Follow up: Response: No adverse reaction vg1 16:37 Follow up: Response: No adverse reaction; IV Status: Completed infusion vg1 Medication: 11:27 VIS not applicable for this client. ph Outcome: 15:09 Discharge ordered by . kb 16:35 Discharged to detention. Report called to Gely DE LA CRUZ vg1 16:35 Condition: good 16:35 Discharge instructions given to patient, detention, Instructed on discharge instructions, follow up and referral plans. medication usage, Demonstrated understanding of instructions, follow-up care, medications, Prescriptions given X 1. 16:36 Patient left the ED. vg1 Signatures: Dispatcher [employer] KHAIMS Sarahi Berg, BENCH CHEMIST-C KILEY-Felisa Orourke, RN RN Mildred Terrell, RN RN Taylor Curtis, RN RN jl7 Kaleigh Storm, RN RN vg1
--- NOTE | 2023-01-01 15:10 | EDPHYS ---
Physician Documentation [facility] Name: Apple Kongrow Age: 67 yrs Sex: Female : 1955 Arrival Date: 01/01/2023 Time: 11:01 Bed 2 Private MD: KHAI Physician Naun Teixeira HPI: 01/01 11:27 This 67 yrs old Female presents to ER via EMS with complaints of Flulike symptoms. kb 11:27 The patient or guardian reports cough, flu symptoms, low-grade fever, myalgias. Onset: kb The symptoms/episode began/occurred yesterday. Severity of symptoms: At their worst the symptoms were moderate, in the emergency department the symptoms are unchanged. Modifying factors: The symptoms are alleviated by nothing, the symptoms are aggravated by nothing. Associated signs and symptoms: Pertinent positives: fever, Pertinent negatives: chest pain, diarrhea, ear ache, nausea, rhinorrhea, sore throat, vomiting. The patient has not experienced similar symptoms in the past. The patient has been recently seen by a physician:. Patient reports cough, fever, malaise, fatigue, body aches that started yesterday. Patient is a resident at [place]. Her PCP requested she be brought to the ER for a flu test.. Historical: - Allergies: 11:08 PENICILLINS; ph - PMHx: 11:08 Brain bleed; Hypertension; stroke; ph - Immunization history:: Adult Immunizations unknown. - Social history:: Smoking status: unknown. ROS: 11:28 Abdomen/GI: Negative for abdominal pain, nausea, vomiting, diarrhea, and constipation. kb 11:28 Constitutional: Positive for body aches, chills, fatigue, fever, malaise. 11:28 Respiratory: Positive for cough. 11:28 Neuro: Positive for headache. 11:28 All other systems are negative. Exam: 11:28 Constitutional: This is a well developed, well nourished patient who is awake, alert, kb and in no acute distress. Head/Face: Normocephalic, atraumatic. ENT: Moist Mucous membranes Cardiovascular: Regular rate and rhythm with a normal S1 and S2. No gallops, murmurs, or rubs. No pulse deficits. Respiratory: Respirations even and unlabored. No increased work of breathing. Talking in full sentences Abdomen/GI: Soft, non-tender. No distention Skin: Warm, dry with normal turgor. Normal color. MS/ Extremity: Pulses equal, no cyanosis. Neurovascular intact. Full, normal range of motion. 11:28 Neuro: Exam negative for acute changes. Vital Signs: 11:06 BP 135 / 55; Pulse 78; Resp 18; Temp 101.2(O); Pulse Ox 95% on R/A; Weight 58.97 kg; ph Height 5 ft. 1 in. ; 11:38 BP 130 / 49; Pulse 77; Resp 15; Pulse Ox 95% ; jl7 13:06 BP 137 / 68; Pulse 81; Resp 15; Pulse Ox 94% ; jl7 13:08 Temp 101.2(O); jl7 14:13 BP 133 / 64; Pulse 81; Resp 18; Pulse Ox 95% on R/A; ph 15:03 BP 137 / 68; Pulse 73; Resp 16; Temp 98.5; Pulse Ox 95% ; vg1 16:35 BP 114 / 54; Pulse 70; Resp 16; Pulse Ox 96% on R/A; vg1 11:06 Body Mass Index 24.56 (58.97 kg, 154.94 cm) ph MDM: 11:06 Patient medically screened. kb 11:28 Differential Diagnosis: Bronchitis Influenza Upper Respiratory Infection Pneumonia. kb Data reviewed: vital signs, nurses notes. Historians other than the Patient: EMS: [facility]. 13:25 Counseling: I had a detailed discussion with the patient and/or guardian regarding: the kb historical points, exam findings, and any diagnostic results supporting the discharge/admit diagnosis, lab results, radiology results, the need for outpatient follow up, a family practitioner, to return to the emergency department if symptoms worsen or persist or if there are any questions or concerns that arise at home. 01/01 11:06 Order name: Flu; Complete Time: 11:46 kb 01/01 11:06 Order name: SARS-COV-2 RT PCR; Complete Time: 12:13 kb 01/01 11:57 Order name: Urinalysis w/ reflexes; Complete Time: 13:22 kb 01/01 13:28 Order name: Urine Culture EDMS 01/01 11:06 Order name: Chest Single View XRAY; Complete Time: 11:57 kb 01/01 12:45 Order name: Vital Signs; Complete Time: 13:07 kb 01/01 14:53 Order name: Vital Signs; Complete Time: 15:05 kb Administered Medications: 11:55 Drug: Acetaminophen PO 650 mg Route: PO; ph 13:30 Follow up: Response: No adverse reaction; Temperature is unchanged ph 14:13 Drug: Ibuprofen PO 600 mg Route: PO; ph 15:05 Follow up: Response: No adverse reaction; Temperature is decreased vg1 14:13 Drug: Rocephin IV 1 grams Route: IV; Rate: calculated rate; Site: Other; ph 16:36 Follow up: Response: No adverse reaction vg1 16:37 Follow up: Response: No adverse reaction; IV Status: Completed infusion vg1 Disposition Summary: 01/01/23 15:09 Discharge Ordered Location: Home kb Condition: Stable kb Diagnosis - UTI/ Urinary tract infection, site not specified kb - Acute upper respiratory infection, unspecified kb Followup: kb - With: Emergency Department - When: As needed - Reason: Worsening of condition Followup: kb - With: Private Physician - When: 2 - 3 days - Reason: Recheck today's complaints, Continuance of care, Re-evaluation by your physician Discharge Instructions: - Discharge Summary Sheet kb - Urinary Tract Infection, Adult, [id number] kb - Upper Respiratory Infection, Adult, [id number] kb Forms: - Medication Reconciliation Form kb - Thank You Letter kb - Antibiotic Education kb - Prescription Opioid Use kb - Patient Portal Instructions kb Prescriptions: - cefpodoxime 100 mg Oral Tablet - take 1 tablet by ORAL route every 12 hours for 10 days take with food; 20 kb tablet; Refills: 0, Product Selection Permitted Signatures: Dispatcher [employer] Sarahi Dale FNP-C FNP-Ckb Hall, Patricia, RN RN ph Kaleigh Storm RN vg1
[2023-01-01 16:50] VITALS: TEMP 98.5
[2023-01-01 16:51] VITALS: BP 114/54; O2SAT 96
== END 2023-01-01 16:36 | disposition home or self-care (01) ==
LOC: ER 11:01
DX: N39.0 Urinary tract infection, site not specified (principal); J06.9 Acute upper respiratory infection, unspecified; Z20.822 Contact with and (suspected) exposure to COVID-19; Z88.0 Allergy status to penicillin
CPT/HCPCS: 96365; 87088; 81001; 87086; 87077; 87186; 87635; 87804 ×2; 71045; 51702; 99285; 96366; J0696 ×2